=== PATIENT | female | born 1950 | race Caucasian/White ===

== ENCOUNTER 2018-07-29 10:32 | Outpatient (REF) | payer MEDICARE, SELFPAY ==
[2018-07-30 11:35] LABS: Campylobacter PCR SEE COMMENTS; Salmonella PCR SEE COMMENTS; Shiga Toxin PCR SEE COMMENTS; Shigella/Enteroinvasive Ecoli SEE COMMENTS
== END 2018-07-29 10:52 ==
LOC: LBN 10:32
PROVIDERS: PCP Internal Medicine; Visit Provider Internal Medicine Gastroenterology
DX: K51.50 Left sided colitis without complications (principal)
CPT/HCPCS: 87505; 83630; 87324

== ENCOUNTER 2018-11-02 01:28 | Outpatient (CLI) | payer MEDICARE, SELFPAY ==
--- NOTE | 2018-11-02 12:38 | DI.MAMMO_ITS ---
SYMPTOMS/DIAGNOSIS: SCREENING, Z12.31 MAMMOGRAMS: Mammograms were interpreted according to the usual protocol including computer analysis with CAD system, tomosynthesis and C view imaging. Comparison is with the prior examinations. No suspicious masses or microcalcifications are seen. The skin and axillae are unremarkable. IMPRESSION: No definite evidence for malignancy. Yearly mammography is recommended. Category 1. Breast density B. MQSA ASSESSMENT OF FINDINGS: Negative. Category 1. Patient will receive a letter notifying them of these results. BI-RADS category B. There are scattered areas of fibroglandular density.
--- NOTE | 2018-11-02 12:49 | DI.CTLCSR_ITS ---
SYMPTOMS/DIAGNOSIS: SCREENING FOR LUNG CA, NICOTINE DEPENDENCE, F17.210 CT SCAN OF THE CHEST: CT scan of the chest was performed according to the lung cancer screening protocol. There are no priors for comparison. There is atherosclerosis of the thoracic aorta but no aneurysmal dilatation. The heart size is within normal limits. No significant pericardial effusion is seen. No significant thoracic adenopathy is seen on this noncontrast examination. No pleural effusion or pneumothorax is identified. There is a 2 cm hypodense left adrenal nodule. The patient is status post cholecystectomy. Emphysematous changes are present in the lungs. No noncalcified pulmonary nodules are present. No focal consolidating infiltrates are seen. Dependent atelectatic changes are seen in the lung bases. The tracheobronchial tree is unremarkable. Degenerative changes are seen in the spine. IMPRESSION: 1. No pulmonary nodules. 2. Pulmonary emphysema. 3. A 2 cm left adrenal hypodense nodule. This may reflect an adrenal adenoma. Followup as clinically appropriate. Lung-RAD Category: 1- Negative Lung- RAD Management of Findings: Continue annual LDCT screening in 12 months
== END 2018-11-02 01:48 ==
PROVIDERS: PCP Internal Medicine; Visit Provider Internal Medicine
DX: Z12.2 Encounter for screening for malignant neoplasm of respiratory organs (principal); F17.210 Nicotine dependence, cigarettes, uncomplicated; J43.9 Emphysema, unspecified; E27.8 Other specified disorders of adrenal gland; Z12.31 Encounter for screening mammogram for malignant neoplasm of breast
CPT/HCPCS: 77063; 77067; G0297

== ENCOUNTER 2019-01-24 11:19 | Outpatient (REF) | payer MEDICARE, SELFPAY | END 2019-01-24 11:39 | LOC: LBN 11:19 | PROVIDERS: PCP Internal Medicine; Visit Provider Internal Medicine | DX: R10.2 Pelvic and perineal pain (principal) | CPT/HCPCS: 87086 ==

== ENCOUNTER 2019-02-01 00:48 | Outpatient (CLI) | payer MEDICARE, SELFPAY ==
--- NOTE | 2019-02-01 14:02 | DI.US_ITS ---
SYMPTOM/DIAGNOSIS: PELVIC PRESSURE, R10.2 PELVIC ULTRASOUND: Transabdominal and transvaginal examination was performed. The uterus measures 4.3 cm long by 2.2 cm AP by 2.8 cm transverse The endometrial stripe is within normal limits. There is a small amount of fluid within the endometrial canal. Cervical Nabothian cysts are present. The left ovary was not visualized transabdominally or transvaginally. No left adnexal mass is seen. The right ovary measures 1.7 x 1.6 x 1.1 cm and is grossly unremarkable. No free pelvic fluid or hydronephrosis is identified. IMPRESSION: Limited examination 2 Small amount of fluid within the endometrial canal.
== END 2019-02-01 01:08 ==
PROVIDERS: PCP Internal Medicine; Visit Provider Internal Medicine
DX: R10.2 Pelvic and perineal pain (principal); N88.8 Other specified noninflammatory disorders of cervix uteri; N85.8 Other specified noninflammatory disorders of uterus
CPT/HCPCS: 76830; 76856

== ENCOUNTER 2019-04-21 08:13 | Outpatient (CLI) | payer MEDICARE, SELFPAY ==
[2019-04-21 09:33] LABS: ALT 24 U/L (12-78); AST 25 U/L (15-37); Albumin 3.8 g/dL (3.4-5.0); Alkaline Phosphatase 82 U/L (46-116); Anion Gap 10.4 mmol/L (3-11); BUN 13 mg/dL (7-18); Bilirubin, Total 0.6 mg/dL (0.2-1.0); CO2 29.6 mmol/L (21.0-32.0); Chloride 102 mmol/L (98-107); Cholesterol 176 mg/dL (50-200); Estimated GFR 54.81 (mL/min/1.73m2); Glucose 89 mg/dL (70-100); HDL Cholesterol 69 mg/dL (40-60); LDL CHOLESTEROL 89 mg/dL (<100); Magnesium 1.8 mg/dL (1.8-2.4); Sodium 142 mmol/L (136-145); Triglyceride 62 mg/dL (30-150)
== END 2019-04-21 08:33 ==
PROVIDERS: PCP Internal Medicine; Visit Provider Internal Medicine
DX: E78.5 Hyperlipidemia, unspecified (principal); E83.42 Hypomagnesemia; F17.200 Nicotine dependence, unspecified, uncomplicated
CPT/HCPCS: 36415; 80053; 80061; 83721; 83735

== ENCOUNTER 2019-05-14 12:27 | Emergency (ER) | payer MEDICARE, SELFPAY ==
[2019-05-14 12:31] VITALS: BP 133/68; PULSE 61; RESP 12; TEMP 36.7; O2SAT 97
[2019-05-14 14:40] VITALS: BP 151/67; PULSE 55; RESP 15; O2SAT 100
[2019-05-14] MEDS: Doxycycline Hyclate 100 MG CAP (14:53)
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
== END 2019-05-14 15:02 | disposition home or self-care (01) ==
PROVIDERS: Emergency Provider Nurse Practitioner Family; PCP Internal Medicine
DX: S80.862A Insect bite (nonvenomous), left lower leg, initial encounter (principal); W57.XXXA Bitten or stung by nonvenomous insect and other nonvenomous arthropods, initial encounter
CPT/HCPCS: 99283

== ENCOUNTER 2019-08-11 07:40 | Outpatient (CLI) | payer MEDICARE, SELFPAY ==
--- NOTE | 2019-08-11 08:30 | DI.RAD_ITS ---
EXAM: XR ABDOMEN FLAT UPRIGHT INDICATION: R10.31, RT LOWER QUAD PAIN, R10.32, LT LOWER QUAD PAIN. COMPARISON: No exams were available for comparison TECHNIQUE: 2D digital imaging was performed. FINDINGS: THERE IS NO EVIDENCE OF BOWEL OBSTRUCTION. THERE IS NO EVIDENCE OF FREE AIR. THE PATIENT IS STATUS P OST CHOLECYSTECTOMY. THERE IS NO EVIDENCE OF ORGANOMEGALY OR A LOCALIZED INTRA-ABDOMINAL OR PELVIC M ASS. IMPRESSION: NO ACUTE ABNORMALITY IS IDENTIFIED.
== END 2019-08-11 08:00 ==
PROVIDERS: PCP Internal Medicine; Visit Provider Internal Medicine Gastroenterology
DX: R10.32 Left lower quadrant pain (principal); Z90.49 Acquired absence of other specified parts of digestive tract; R10.31 Right lower quadrant pain
CPT/HCPCS: 74019

== ENCOUNTER 2019-11-30 02:19 | Outpatient (CLI) | payer MEDICARE, SELFPAY ==
--- NOTE | 2019-11-30 12:58 | DI.CTLCSR_ITS ---
EXAM: CT CHEST LUNG CANCER SCREEN CLINICAL HISTORY: SCREENING FOR LUNG CANCER, NICOTINE DEPENDENCE, F17.210 TECHNIQUE: Noncontrast CT examination of the chest was performed utilizing lung cancer screening pro [employer]. COMPARISON: CT CHEST LUNG CANCER SCREEN from 11/02/2018 FINDINGS: Images obtained through the upper abdomen show unremarkable appearance of visualized portions of live r and spleen. No mediastinal or hilar adenopathy. Tracheobronchial tree appears intact. Lungs are predominantly clear but there are very tiny pulmonary nodules seen peripherally bilaterally, which ar e noncalcified and which in retrospect were present on prior CT 11/02/2018 and are unchanged from omar t time. Largest nodules measure in the 2-3 millimeter in diameter range. No additional intrapulmona ry findings apart from moderate central lobular emphysema. No pleural effusion. IMPRESSION: Stable less than 3 millimeter bilateral intrapulmonary nodules, predominately peripheral. Centrilobu lar emphysema noted. Category 2, benign appearance or behavior. Continue annual screening with LDCT in 12 months. Lung RADS Cat 2 - Benign Appearance / Behavior: Nodules with a very low likelihood of becoming a clin ically active caner due to size or lack of growth
--- NOTE | 2019-11-30 13:18 | DI.MRI_ITS ---
EXAM: MR LUMBAR SPINE WO CLINICAL HISTORY: LEFT LEG PAIN, CHRONIC LUMBAR RADICULOPATHY, M54.16. TECHNIQUE: Multiplanar multisequence MRI was performed. MR examination of the lumbosacral spine was performed according to the usual protocol. COMPARISON: No exams were available for comparison FINDINGS: No significant bony signal abnormality is seen. There is a moderate left convex lumbar scoliosis. T here are disc bulges throughout the lumbar region. No focal disc herniation identified. No bony robbie tral canal spinal stenosis or neural foraminal stenosis. The conus medullaris appears intact. Moder ate facet hypertrophic changes are noted with the most prominent facet hypertrophic changes at L4-5 a nd L5-S1. IMPRESSION: Facet degenerative changes and multilevel disc bulge with no disc herniation or significant spinal st enosis.
== END 2019-11-30 02:39 ==
PROVIDERS: PCP Internal Medicine; Visit Provider Internal Medicine
DX: M79.605 Pain in left leg (principal); M54.16 Radiculopathy, lumbar region; M51.16 Intervertebral disc disorders with radiculopathy, lumbar region; M47.27 Other spondylosis with radiculopathy, lumbosacral region; Z12.2 Encounter for screening for malignant neoplasm of respiratory organs; R91.8 Other nonspecific abnormal finding of lung field; J43.9 Emphysema, unspecified
CPT/HCPCS: G0297; 72148

== ENCOUNTER 2020-09-11 03:13 | Outpatient (CLI) | payer MEDICARE, SELFPAY ==
[2020-09-11 10:35] LABS: Calculated LDL 82 mg/dL (<100); Cholesterol 156 mg/dL (<200); HDL Cholesterol 62 mg/dL (40-60); Triglyceride 63 mg/dL (<150)
== END 2020-09-11 03:33 ==
PROVIDERS: PCP Internal Medicine; Visit Provider Internal Medicine
DX: E78.00 Pure hypercholesterolemia, unspecified (principal)
CPT/HCPCS: 36415; 80061

== ENCOUNTER 2020-09-16 00:28 | Outpatient (CLI) | payer MEDICARE, SELFPAY ==
--- NOTE | 2020-09-16 09:15 | DI.NM_ITS ---
APPROVED REPORT Exam: Exercise Treadmill Patient Location: Out-Patient Room/Bed: Stress Nurse: Jessica Armenta RN BMI: 27.09 Baseline Rhythm: Sinus Rhythm Comment: PAC's Medical History Medical History: HLD. Scoliosis. Fibromyalgia. Ulceritive Colitis. Smoker. Cardiac Medications: Nexium. Atorvastatin. , Allergies: Sulfa antibiotics. Cardiac Risk Factors: Hyperlipidemia, FHX of CAD, Smoking (current) Previous Cardiac Procedures: None. Pretest Chest Pain Characteristics: No chest pain Exercise History: Physically active Lung Sounds: Clear to auscultation Heart Sounds: Regular Stress Test Details Test: Exercise stress testing was performed using a Rodo protocol. Nuclear Acquisition: Rest Tc-99m/Stress Tc-99m 1 day Rest Isotope: Tc-99m Sestamibi. Dose: 11.0 Date: 09/16/2020 Injection Time: 0930 Stress Isotope: Tc-99m Sestamibi. Dose: 35 Date: 09/16/2020 Injection Time: 1200 HR Resting HR Supine: 60 bpm Max Heart Rate (APMHR): 148.322126 bpm Resting HR Standin bpm Target HR (85% APMHR): 125.720633 bpm Max HR Achieved: 152 bpm % of APMHR: 102.70 Recovery HR: 75 bpm HR response to stress: Normal HR response to stress BP Resting BP Supine: 178/90 mmHg Resting BP Standin/84 mmHg Max BP: 190/68 mmHg Recovery BP: 164/82 mmHg BP response to stress: Blunted blood pressure response to stress. Comment: Patient hypertensive at baseline. ECG Resting ECG: Sinus Rhythm Ectopy: PAC's Stress ECG: Sinus Tachycardia ST Change: no significant ST segment changes Arrhythmia: PAC's. Recovery ECG: Sinus Rhythm Recovery ST Change: no significant ST segment changes Recovery Arrhythmia: PVC's, frequent PAC's. Clinical Reason for Termination: Fatigue Stress Symptoms: None. Exercise duration: 6 min21 sec Highest Stage Reached: Stage 3: 3.4 mph at 14% grade. Exercise capacity: 7.57 METs Stress ECG Conclusion 1. Resting EKG was within normal limits 2. Patient exercised on the Rodo protocol and completed a workload of 7.57 METS. There were no symp toms to suggest angina 3. Normal heart rate and blood pressure response to exercise. Patient achieved greater than 100% of predicted heart rate for age 4. Electrocardiographically there was no evidence of myocardial ischemia 5. Atrial premature beats were noted 6. Simons treadmill score is 6 which is low risk Stress Test Summary STAGE Time (mins) Speed (mph) Grade (%) HR BP SYMPTOMS METS Supine 60 178/90 Standing 65 166/84 1 3 1.7 10 110 194/78 4.6 2 6 2.5 12 146 200/72 7 1 min recovery 135 190/68 3 min recovery 84 182/72 6 min recovery 75 164/82 MPI Conclusion There is normal myocardial perfusion without evidence of ischemia or prior infarction. Estimated eje ction fraction is 71% Radiologist Interpretation Radiologist agrees with Athletics Teacher's Interpretation. Radiologist Interpretation by: Ephraim Delgado MD Interpretation Date/Time: 09/17/2020 09:08:36
== END 2020-09-16 00:48 ==
PROVIDERS: PCP Internal Medicine; Visit Provider Internal Medicine
DX: R07.89 Other chest pain (principal); E78.5 Hyperlipidemia, unspecified; F17.210 Nicotine dependence, cigarettes, uncomplicated; Z82.49 Family history of ischemic heart disease and other diseases of the circulatory system
CPT/HCPCS: 78452; 93016; 93018; 93017

== ENCOUNTER 2021-01-28 03:31 | Outpatient (CLI) | payer MEDICARE, SELFPAY ==
[2021-01-28 13:47] LABS: HCT 41.6 % (36.0-46.0); HGB 13.5 g/dL (11.2-15.7); MCHC 32.5 % (32.0-36.0); MCV 89.3 fL (80-95); MPV 9.8 fL (8.0-11.0); Platelet Count 175 10^3/uL (130-400); RBC 4.66 10^6/uL (3.93-5.22); RDW 13.5 % (11.7-14.6); RDW-SD 44.7 fL; WBC 5.23 10^3/uL (4.4-10.8)
[2021-01-28 15:20] LABS: ALT 27 U/L (14-59); AST 25 U/L (15-37); Albumin 3.9 g/dL (3.4-5.0); Alkaline Phosphatase 90 U/L (46-116); Anion Gap 8.8 mmol/L (3-11); BUN 12 mg/dL (7-18); Bilirubin, Total 0.5 mg/dL (0.2-1.0); CO2 29.2 mmol/L (21.0-32.0); CREATININE 1.1 mg/dL (0.55-1.02); Calcium 9.1 mg/dL (8.5-10.1); Chloride 102 mmol/L (98-107); Estimated GFR 48.82 (mL/min/1.73m2); Glucose 151 mg/dL (74-106); Potassium 3.9 mmol/L (3.5-5.1); Sodium 140 mmol/L (136-145); TSH 1.36 uIU/mL (0.36-3.74); Vitamin B12 248 pg/mL (193-986)
[2021-01-29 09:23] LABS: ESR 6 mm/hr (<or=30)
[2021-01-29 14:41] LABS: ANA Interpretation Positive (Negative); ANA Titer Pattern 1:80 Homogeneous
[2021-01-30 04:58] LABS: Vitamin D 25 Total 27.9 ng/ml (30-100)
== END 2021-01-28 03:32 | disposition home or self-care (01) ==
LOC: LBO 03:31
PROVIDERS: PCP Internal Medicine; Visit Provider Internal Medicine
DX: R41.3 Other amnesia (principal); E55.9 Vitamin D deficiency, unspecified
CPT/HCPCS: 80053; 82306; 85027; 85652; 82607; 84443; 86038

== ENCOUNTER 2021-03-05 02:10 | Outpatient (CLI) | payer MEDICARE, SELFPAY ==
--- NOTE | 2021-03-05 07:15 | DI.MAMMO_ITS ---
EXAM: MG MAMMO SCREENING CLINICAL HISTORY: screening,z12.39. TECHNIQUE: Bilateral full field digital CC and MLO mammographic images were obtained with 3D tomosyn thesis and utilizing computer aided detection (CAD). COMPARISON: Prior mammograms dating back to 1011, the most recent being October 2018. FINDINGS: No new significant radiograph findings in left breast peer However in the right breast there is a new group of microcalcifications posteriorly located approxima tely 9 cm in from the nipple. Spot Mag views recommended There is no significant architectural distortion nor skin thickening-retraction. IMPRESSION: No radiographic evidence of malignancy in left breast. New microcalcification group posteriorly in the right breast. This requires spot Mag 2D views both C C and straight lateral. BI-RADS Category 0 - Assessment Incomplete: Need additional imaging evaluation Breast Density - Category B - Scattered areas of fibroglandular density Breast density Category C or D implies that the patient has dense breast tissue. Dense breast tissue can make it harder to find cancer on a mammogram. Dense breast tissue is also associated with an incr eased risk of breast cancer. This information about the result of the mammogram report was provided to the patient to raise their awareness. Use this report when you speak with the patient about their risks for breast cancer, which includes their family history. At that time, you may recommend additional screening tests (Ultrasoun d or MRI) as these tests may add significant information. A negative radiographic report should not delay biopsy if a dominant or clinically suspicious mass is present. Up to ten percent of cancers are not identified on mammography. A negative report may reinforce clinical impression. Adenosis and dense breasts may obscure an underlying neoplasm. False positive reports average 6 to 10%. Patient will receive a letter notifying them of these results.
--- NOTE | 2021-03-05 11:00 | DI.CTLCSR_ITS ---
EXAM: CT CHEST LUNG CANCER SCREEN CLINICAL HISTORY: Screening for lung cancer,current smoker, f17.210. TECHNIQUE: Imaging Protocol: Low Dose Technique CONTRAST MATERIAL: None COMPARISON: CT CT CHEST LUNG CANCER SCREEN from 11/02/[address] CHEST LUNG CANCER SCREEN from 11/30/2019 FINDINGS: CHEST: LUNGS: The previously described benign-appearing small nodular densities in the lung anne are uncha nged.. There are no new pulmonary nodules. No new infiltrates. No pleural effusions. No significa nt focal findings in the trachea and mainstem bronchi.. MEDIASTINUM: There is no obvious hilar nor mediastinal adenopathy. CARDIAC: Heart size is normal. There is no pericardial effusion.Caliber of the thoracic aorta is wit hin normal limits. OTHER: There is nodule in the lateral limb of the left adrenal gland which measures 2.5 by 2.0 cm.. This cannot be compared to the prior study is a prior study did not reach down to this level. Howeve r, this nodules unchanged from the prior CT scan October 2018 and therefore most probably benign. OSSEOUS: No significant osseous lesions.. IMPRESSION: 1. Stable bilateral benign-appearing pulmonary findings. No new ominous focal pulmonary findings nor pleural effusions nor obvious intrathoracic adenopathy. 2. Left adrenal nodule measuring 25 x 20 millimeters which is unchanged from CT scan of October 2018 and therefore most probably a benign adenoma. The opposite-right adrenal gland appears unremarkable . 3. Lung rads 2 benign findings; recommended continued yearly LDCT. Lung-RADS 1.0 CATEGORIES: Category 0 - Prior chest CT exam(s) being located for comparison. Category 1 - Annual screening in 12 months. No nodules or definitely benign nodules. Category 2 - Annual screening in 12 months. Benign appearance. Nodules with low likelihood of becomin g active cancer. Category 3 - 6-month follow-up. Probably benign. Short-term follow-up suggested. Nodules with low lik elihood of becoming active cancer. Category 4A - 3-month follow-up and CT/PET if >8 mm in size. Suspicious finding. Findings which requi re additional testing. Category 4B - Findings which require additional testing and tissue sampling. Modifier S- Potentially clinically significant findings (non lung cancer) RADIATION DOSE DELIVERED: 72.17mGy.cm Total DLP 1.84mGy CTDIvol DATA REPOSITORY: All CT scans at this facility are submitted to the National Radiology Data Registry (NRDR) Dose Index Registry (DIR) with the [employer] (A[employer]). RADIATION OPTIMIZATION: All CT scans at this facility use at least one of these dose optimization te chniques: automated exposure control; mA and/or kV adjustment per patient size (includes targeted exa ms where dose is matched to clinical indication); or iterative reconstruction.
== END 2021-03-05 02:30 ==
PROVIDERS: PCP Internal Medicine; Visit Provider Internal Medicine
DX: Z12.31 Encounter for screening mammogram for malignant neoplasm of breast (principal); R92.8 Other abnormal and inconclusive findings on diagnostic imaging of breast; Z12.2 Encounter for screening for malignant neoplasm of respiratory organs; F17.210 Nicotine dependence, cigarettes, uncomplicated; R91.8 Other nonspecific abnormal finding of lung field; D35.02 Benign neoplasm of left adrenal gland
CPT/HCPCS: 71271; 77063; 77067

== ENCOUNTER 2021-03-07 03:38 | Outpatient (CLI) | payer MEDICARE, SELFPAY ==
--- NOTE | 2021-03-07 | DI.MAMMO_ITS ---
EXAM: MG MAMMO SCREEN CALL BACK UNI CLINICAL HISTORY: F/U MAMMO, NEW GROUP OF MICROCALCIFICATIONS. TECHNIQUE: Craniocaudal and mediolateral oblique Full Field Digital Mammography views of the right b reast with Computer Aided Diagnosis. COMPARISON: Priors available for comparison FINDINGS: Mammography/Tomosynthesis: Masses/Architectural Distortion: None seen. Microcalcifictions: No suspicious pleomorphic-type are seen. There is a tiny cluster of a few punctat e calcifications in the upper-outer quadrant of the right breast. They appear to have been present o n a prior examination from 2018 on the MLO view. No definite suspicious characteristics are seen. Skin Thickening/Nipple Retraction: None. IMPRESSION: 1. No evidence of malignancy is noted. 2. A six-month follow-up right mammogram is requested for re-evaluation. 3. The findings were discussed with the patient on the date of the examination. BI-RADS Category 3 - 6 month - Probably Benign Finding: Recommend follow-up imaging in 6 months Breast Density - Category B - Scattered areas of fibroglandular density Breast density Category C or D implies that the patient has dense breast tissue. Dense breast tissue can make it harder to find cancer on a mammogram. Dense breast tissue is also associated with an incr eased risk of breast cancer. This information about the result of the mammogram report was provided to the patient to raise their awareness. Use this report when you speak with the patient about their risks for breast cancer, which includes their family history. At that time, you may recommend additional screening tests (Ultrasoun d or MRI) as these tests may add significant information. A negative radiographic report should not delay biopsy if a dominant or clinically suspicious mass is present. Up to ten percent of cancers are not identified on mammography. A negative report may reinforce clinical impression. Adenosis and dense breasts may obscure an underlying neoplasm. False positive reports average 6 to 10%. Patient will receive a letter notifying them of these results.
== END 2021-03-07 03:58 ==
PROVIDERS: PCP Internal Medicine; Visit Provider Internal Medicine
DX: Z12.31 Encounter for screening mammogram for malignant neoplasm of breast (principal); R92.8 Other abnormal and inconclusive findings on diagnostic imaging of breast; N63.11 Unspecified lump in the right breast, upper outer quadrant
CPT/HCPCS: 77063; 77067

== ENCOUNTER 2021-08-11 03:48 | Outpatient (RCR) | payer MEDICARE, SELFPAY ==
--- NOTE | 2021-08-11 10:00 | HOLTER_ITS ---
APPROVED REPORT Conclusion This is a 48-hour Holter monitor Predominant rhythm was sinus with an average heart rate of 70. Minimum was 53, maximum 131 There were very rare isolated PVCs There were moderately frequent atrial premature beats. There were rare atrial pairs. There were rar e self-limited atrial runs the longest of these was 9 beats in duration There was no atrial fibrillation. There was no high-grade AV block. There were no pauses greater th an 3 seconds
== END 2021-08-21 23:59 | disposition home or self-care (01) ==
LOC: RT 03:48
PROVIDERS: PCP Internal Medicine; Visit Provider Internal Medicine
DX: I45.9 Conduction disorder, unspecified (principal); I49.1 Atrial premature depolarization
CPT/HCPCS: 93227; 93225; 93226

== ENCOUNTER → 2021-08-13 12:45 | Outpatient (BNVA) | payer MEDICARE, SELFPAY | PROVIDERS: PCP Internal Medicine; Referring Provider Internal Medicine; Visit Provider Psychiatry & Neurology Neurology | DX: M79.604 Pain in right leg (principal); M79.605 Pain in left leg; G89.29 Other chronic pain; M41.26 Other idiopathic scoliosis, lumbar region | CPT/HCPCS: 99214 ==

== ENCOUNTER → 2021-08-26 11:19 | Outpatient (BNVA) | payer MEDICARE, SELFPAY | PROVIDERS: PCP Internal Medicine; Referring Provider Internal Medicine; Visit Provider Internal Medicine Cardiovascular Disease | DX: R07.89 Other chest pain (principal); N18.9 Chronic kidney disease, unspecified | CPT/HCPCS: 99203; 99213 ==

== ENCOUNTER 2021-08-27 02:46 | Outpatient (CLI) | payer MEDICARE, SELFPAY ==
[2021-08-27 12:01] LABS: Anion Gap 3.5 mmol/L (3-11); BUN 12 mg/dL (7-18); CO2 32.5 mmol/L (21.0-32.0); CREATININE 1.1 mg/dL (0.55-1.02); Calcium 8.8 mg/dL (8.5-10.1); Chloride 105 mmol/L (98-107); Estimated GFR 48.82 (mL/min/1.73m2); Glucose 90 mg/dL (74-106); Potassium 5.2 mmol/L (3.5-5.1); Sodium 141 mmol/L (136-145)
== END 2021-08-27 02:47 | disposition home or self-care (01) ==
LOC: LBO 02:46
PROVIDERS: PCP Internal Medicine; Visit Provider Internal Medicine Cardiovascular Disease
DX: R07.89 Other chest pain (principal); N18.9 Chronic kidney disease, unspecified
CPT/HCPCS: 36415; 80048

== ENCOUNTER 2021-09-09 01:26 | Outpatient (CLI) | payer MEDICARE, SELFPAY ==
--- NOTE | 2021-09-09 09:46 | DI.MAMMO_ITS ---
Exam(s) MAMMO DIAGNOSTIC UNI EXAM: MAMMO DIAGNOSTIC UNI CLINICAL HISTORY: 6 month follow up,F/U MICROCALCIFICATIONS,R92.0. TECHNIQUE: Craniocaudal and mediolateral oblique Full Field Digital Mammography views of the right b reast with Computer Aided Diagnosis followed by Tomosynthesis. COMPARISON: Comparison is made with prior examinations. FINDINGS: Mammography/Tomosynthesis: Masses/Architectural Distortion: None seen. Microcalcifictions: No suspicious pleomorphic-type are seen. Stable punctate calcifications in the ri ght breast. Skin Thickening/Nipple Retraction: None. IMPRESSION: 1. No evidence of malignancy is noted. 2. Unless there is more urgent need, follow-up screening mammography is recommended, as per [employer] guidelines. 3. The findings were discussed with the patient on the date of the examination. BI-RADS Category 1 - Negative Breast Density - Category B - Scattered areas of fibroglandular density Breast density Category C or D implies that the patient has dense breast tissue. Dense breast tissue can make it harder to find cancer on a mammogram. Dense breast tissue is also associated with an incr eased risk of breast cancer. This information about the result of the mammogram report was provided to the patient to raise their awareness. Use this report when you speak with the patient about their risks for breast cancer, which includes their family history. At that time, you may recommend additional screening tests (Ultrasoun d or MRI) as these tests may add significant information. A negative radiographic report should not delay biopsy if a dominant or clinically suspicious mass is present. Up to ten percent of cancers are not identified on mammography. A negative report may reinforce clinical impression. Adenosis and dense breasts may obscure an underlying neoplasm. False positive reports average 6 to 10%. Patient will receive a letter notifying them of these results.
== END 2021-09-09 01:46 ==
PROVIDERS: PCP Internal Medicine; Visit Provider Internal Medicine
DX: Z12.31 Encounter for screening mammogram for malignant neoplasm of breast (principal); R92.8 Other abnormal and inconclusive findings on diagnostic imaging of breast; R92.0 Mammographic microcalcification found on diagnostic imaging of breast
CPT/HCPCS: 77061; 77065; G0279

== ENCOUNTER 2022-03-06 00:13 | Outpatient (CLI) | payer MEDICARE, SELFPAY ==
--- NOTE | 2022-03-06 06:30 | DI.CTLCSR_ITS ---
Exam(s) CT CHEST LUNG CANCER SCREEN EXAM: CT CHEST LUNG CANCER SCREEN CLINICAL HISTORY: Screening for lung cancer,CURRENT SMOKER, F17.210 TECHNIQUE: Imaging Protocol: Axial computed tomography images with coronal and sagittal reformatted images were created and reviewed COMPARISON: CT CT CHEST LUNG CANCER SCREEN from 03/05/2021 FINDINGS: Tracheobronchial tree: Patent where visualized. Pulmonary parenchyma: No consolidation or dominant measurable mass. Emphysematous changes are present in the lungs. Lung Nodules: There again seen a few peripheral noncalcified pulmonary nodules present the largest me asures 2.6 mm. Mediastinum and Maria Antonia: No dominant adenopathy or fluid collection. The esophagus is unremarkable.There is a small hiatal hernia. Thyroid gland: Unremarkable. Lymph nodes: Unremarkable. Pleura: No effusion or pneumothorax. Heart: The heart is not dilated. Coronary artery calcifications are present. No pericardial effusion . Aorta: Thoracic aorta non-dilated.Atherosclerosis is present. Upper abdomen: The patient is status post cholecystectomy. There is a stable left adrenal nodule li jesica reflecting an adenoma. Soft Tissues: Unremarkable. Bones: Within normal limits. IMPRESSION: No suspicious pulmonary nodules are present. Lung RADS Cat 2 - Benign Appearance / Behavior: Nodules with a very low likelihood of becoming a clin ically active cancer due to size or lack of growth Lung-RADS 1.0 CATEGORIES: Category 0 - Prior chest CT exam(s) being located for comparison. Category 1 - Annual screening in 12 months. No nodules or definitely benign nodules. Category 2 - Annual screening in 12 months. Benign appearance. Nodules with low likelihood of becomin g active cancer. Category 3 - 6-month follow-up. Probably benign. Short-term follow-up suggested. Nodules with low lik elihood of becoming active cancer. Category 4A - 3-month follow-up and CT/PET if >8 mm in size. Suspicious finding. Findings which requi re additional testing. Category 4B - Findings which require additional testing and tissue sampling. Suspicious finding. Category 4X - Category 3 or 4 nodules with additional features or imaging findings that increases the suspicion of malignancy. Modifier S- Potentially clinically significant finding. (Non lung cancer) RADIATION DOSE DELIVERED: 67.25mGy.cm Total DLP !Error CTDIvol 67.25mGy.cm Total DLP CTDIvol DATA REPOSITORY: All CT scans at this facility are submitted to the National Radiology Data Registry (NRDR) Dose Index Registry (DIR) with the [employer] (A[employer]). RADIATION OPTIMIZATION: All CT scans at this facility use at least one of these dose optimization te chniques: automated exposure control; mA and/or kV adjustment per patient size (includes targeted exa ms where dose is matched to clinical indication); or iterative reconstruction.
== END 2022-03-06 00:33 ==
PROVIDERS: PCP Internal Medicine; Visit Provider Internal Medicine
DX: Z12.2 Encounter for screening for malignant neoplasm of respiratory organs (principal); F17.210 Nicotine dependence, cigarettes, uncomplicated; R91.8 Other nonspecific abnormal finding of lung field; K44.9 Diaphragmatic hernia without obstruction or gangrene; J43.8 Other emphysema
CPT/HCPCS: 71271

== ENCOUNTER → 2022-04-22 03:10 | Outpatient (CLI) | payer MEDICARE, SELFPAY ==
--- NOTE | 2022-04-22 09:11 | DI.RAD_ITS ---
Exam(s) XR HIP RT COMPLETE AP PELVIS EXAM: XR HIP RT COMPLETE AP PELVIS CLINICAL HISTORY: rt hip pain, m25.551 TECHNIQUE: COMPARISON: CR RT HIP COMPLETE AP PELVIS from 03/09/2016 FINDINGS: Two views were obtained. There are severe degenerative changes of the lower lumbar spine. There are slight degenerative changes of the SI joints bilaterally. Cartilaginous joint spaces of the hips ap pear fairly well maintained. No significant bony abnormality seen involving the hips. IMPRESSION: RADIATION DOSE DELIVERED: Total DLP
== END ==
PROVIDERS: PCP Internal Medicine; Visit Provider Internal Medicine
DX: M25.551 Pain in right hip (principal); M53.3 Sacrococcygeal disorders, not elsewhere classified
CPT/HCPCS: 36415; 80053; 80061; 82306; 85027; 73502; 83735

== ENCOUNTER 2022-04-22 04:02 | Outpatient (CLI) | payer MEDICARE, SELFPAY ==
[2022-04-22 09:03] LABS: HCT 43.9 % (36.0-46.0); HGB 14.3 g/dL (11.2-15.7); MCH 28.4 pg (27.0-33.0); MCHC 32.6 % (32.0-36.0); MCV 87 fL (80-95); MPV 9.7 fL (8.0-11.0); Platelet Count 215 10^3/uL (130-400); RBC 5.03 10^6/uL (3.93-5.22); RDW 13.9 % (11.7-14.6); RDW-SD 44.7 fL; WBC 4.45 10^3/uL (4.4-10.8)
[2022-04-22 09:59] LABS: ALT 23 U/L (14-59); AST 17 U/L (15-37); Albumin 4.2 g/dL (3.4-5.0); Alkaline Phosphatase 105 U/L (46-116); Anion Gap 6.9 mmol/L (3-11); BUN 13 mg/dL (7-18); Bilirubin, Total 0.8 mg/dL (0.2-1.0); CO2 30.1 mmol/L (21.0-32.0); CREATININE 1.1 mg/dL (0.55-1.02); Calcium 9.2 mg/dL (8.5-10.1); Calculated LDL 98 mg/dL (<100); Chloride 102 mmol/L (98-107); Cholesterol 180 mg/dL (<200); Estimated GFR 48.69 (mL/min/1.73m2); Glucose 94 mg/dL (74-106); HDL Cholesterol 64 mg/dL (40-60); Magnesium 1.7 mg/dL (1.8-2.4); Potassium 4.2 mmol/L (3.5-5.1); Sodium 139 mmol/L (136-145); Total Protein 7.4 g/dL (6.4-8.2); Triglyceride 91 mg/dL (<150)
[2022-04-23 06:51] LABS: Vitamin D 25 Total 45.2 ng/mL (30-100)
== END 2022-04-22 04:03 | disposition home or self-care (01) ==
LOC: LBO 04:03
PROVIDERS: PCP Internal Medicine; Referring Provider Internal Medicine; Visit Provider Internal Medicine
DX: E55.9 Vitamin D deficiency, unspecified (principal); E78.5 Hyperlipidemia, unspecified; K51.90 Ulcerative colitis, unspecified, without complications; N18.9 Chronic kidney disease, unspecified; E78.00 Pure hypercholesterolemia, unspecified; F17.200 Nicotine dependence, unspecified, uncomplicated
CPT/HCPCS: 36415; 80053; 80061; 82306; 85027; 83735

== ENCOUNTER → 2022-06-12 09:13 | Outpatient (BNVA) | payer MEDICARE, SELFPAY | PROVIDERS: PCP Internal Medicine; Referring Provider Internal Medicine; Visit Provider Student in an Organized Health Care Education/Training Program | DX: M70.61 Trochanteric bursitis, right hip (principal); M76.891 Other specified enthesopathies of right lower limb, excluding foot | CPT/HCPCS: 20610; 99213; J1040 ==

== ENCOUNTER → 2022-08-27 09:48 | Outpatient (BNVA) | payer MEDICARE, SELFPAY | PROVIDERS: PCP Internal Medicine; Referring Provider Internal Medicine; Visit Provider Internal Medicine Cardiovascular Disease | DX: Z79.01 Long term (current) use of anticoagulants (principal); R07.89 Other chest pain; E78.5 Hyperlipidemia, unspecified | CPT/HCPCS: 99212 ==

== ENCOUNTER → 2022-09-28 09:19 | Outpatient (BNVA) | payer MEDICARE, SELFPAY | PROVIDERS: PCP Student in an Organized Health Care Education/Training Program; Referring Provider Internal Medicine; Visit Provider Student in an Organized Health Care Education/Training Program | DX: M76.891 Other specified enthesopathies of right lower limb, excluding foot (principal); M70.61 Trochanteric bursitis, right hip; M76.31 Iliotibial band syndrome, right leg | CPT/HCPCS: 99213 ==

== ENCOUNTER → 2022-10-19 01:48 | Outpatient (CLI) | payer MEDICARE, SELFPAY ==
--- NOTE | 2022-10-19 07:30 | DI.MRI_ITS ---
Exam(s) MR LOWER JOINT RT WO EXAM: MR LOWER JOINT RT WO CLINICAL HISTORY: pain, ?gluteal tendon tear,TENDINITIS RT HIP ABDUCTOR,TROCHANTERIC BURSITIS TECHNIQUE: Multiplanar multisequence MRI of Pelvis was performed COMPARISON: CR XR HIP RT COMPLETE AP PELVIS from 04/22/2022 FINDINGS: Bones: There is no fracture or contusion pattern. Joints: No significant joint effusion is present. The SI joints and symphysis pubis are well maintained. Musculotendinous structures: High signal distally and partial tear involving the gluteus medius tendo n. There is also some high signal in the distal gluteus medius muscle. There is minimal fluid in th e trochanteric bursa. Fluid is seen around the gluteus minimus tendon distally but no focal tear is visible. Intrapelvic structures demonstrate no significant abnormality. IMPRESSION: Partial tear of the gluteus medius tendon. DATA REPOSITORY:
== END ==
PROVIDERS: PCP Student in an Organized Health Care Education/Training Program; Visit Provider Student in an Organized Health Care Education/Training Program
DX: M70.61 Trochanteric bursitis, right hip (principal); M76.31 Iliotibial band syndrome, right leg; M76.891 Other specified enthesopathies of right lower limb, excluding foot; M25.551 Pain in right hip; S76.011A Strain of muscle, fascia and tendon of right hip, initial encounter
CPT/HCPCS: 73721

== ENCOUNTER → 2022-11-24 13:20 | Outpatient (BNVA) | payer MEDICARE, SELFPAY | PROVIDERS: PCP Student in an Organized Health Care Education/Training Program; Referring Provider Student in an Organized Health Care Education/Training Program; Visit Provider Student in an Organized Health Care Education/Training Program | DX: S76.011A Strain of muscle, fascia and tendon of right hip, initial encounter (principal); X58.XXXA Exposure to other specified factors, initial encounter; M70.61 Trochanteric bursitis, right hip; M76.31 Iliotibial band syndrome, right leg | CPT/HCPCS: 99214 ==

== ENCOUNTER 2022-11-27 00:11 | Outpatient (CLI) | payer MEDICARE, SELFPAY ==
--- NOTE | 2022-11-27 08:15 | DI.DEXA_ITS ---
Exam(s) XR DEXA BONE DENSITY W/WO ERIC EXAM: XR DEXA BONE DENSITY W/WO ERIC CLINICAL HISTORY: evaluate bone density,OSTEOPENIA,SMOKER,JAIL USE MEDS,SCREENING FOR TECHNIQUE: Holoa[employer] america Horizon C densitometer analysis of left hip, lumbar spine and left forearm. COMPARISON: 2010 and 2014 FINDINGS: Lateral view of the thoracic and lumbar spine shows no evidence of compression fractures. Bone mineral density measurements of the lumbar spine correspond to a total T-score of 0.6, in the n ormal range. This represents an 11.6 percent increase from 2014 and a 10.8 percent increase compared with 2010. this could be secondary to worsening of degenerative changes. Bone mineral density measurements of the left hip correspond to a total T-score of -2.5., in the ost eoporotic range. This represents a 6.6 percent decrease when compared with 2014 and a 17.9 percent d ecrease when compared with 2010. The femoral neck T-score is -1.7 . The right forearm bone mineral density measurements correspond to a T-score of the distal 3rd of -2. 1, in the osteopenic range. This represents a 5.9 percent decrease compared to 11/10.. IMPRESSION: Osteopenia of the right forearm. Borderline osteoporosis of the left hip. Normal bone mineral densi ty of the lumbar spine.
== END 2022-11-27 00:31 ==
LOC: DI 00:11
PROVIDERS: PCP Student in an Organized Health Care Education/Training Program; Visit Provider Student in an Organized Health Care Education/Training Program
DX: E55.9 Vitamin D deficiency, unspecified (principal); Z79.899 Other long term (current) drug therapy; F17.210 Nicotine dependence, cigarettes, uncomplicated; M81.0 Age-related osteoporosis without current pathological fracture; M85.88 Other specified disorders of bone density and structure, other site
CPT/HCPCS: 77080

== ENCOUNTER 2022-12-11 08:42 | Day surgery (SDC) | payer MEDICARE, SELFPAY ==
[2022-12-11] VITALS (7 sets, daily range): BP systolic 87–145; BP diastolic 34–70; PULSE 60–70; RESP 13–18; TEMP 36.4–36.5; O2SAT 93–99; BMI 29.5
[2022-12-11] MEDS: Lactated Ringers 1,000 ML 30 ML IV (09:50)
--- NOTE | 2022-12-11 10:09 | ANES.PREOP_ITS ---
General Info Date of Service Date Performed: 12/11/22 Height: 5 ft 1 in Weight: 71 kg Body Mass Index (BMI): 29.5 Surgical Procedure: Operation Date: 12/11/22 11:35 Proposed Procedure Side Surgeon p Endoscopic Iliotibial Band Release w/Trochanteric Bursectomy and Gluteal Tendon Repair Right Masood Anderson MD Actual Procedure Side Surgeon p Endoscopic Iliotibial Band Release w/Trochanteric Bursectomy and Gluteal Tendon Repair Right Masood Anderson MD Meds Allergies and Home Medications Allergies Allergy/AdvReac Type Severity Reaction Status Date / Time Sulfa (Sulfonamide Allergy Unknown unknown Verified 12/10/22 13:32 Antibiotics) bupropion AdvReac Intermediate Agitation Uncoded 12/10/22 13:32 Home Medication Medication Instructions Recorded omeprazole 40 mg capsule,delayed 40 mg PO DAILY #90 caps 02/18/22 release mesalamine 400 mg capsule (with 2,400 mg PO BID #1,280 tab-caps 03/19/22 delayed release tablets inside) (Delzicol) atorvastatin 20 mg tablet 20 mg PO DAILY #90 tabs 04/14/22 Wellbutrin XL 150 mg 24 hr tablet, 150 mg PO QAM #90 tabs 09/29/22 extended release (bupropion HCl) pregabalin 100 mg capsule See Rx Instructions PO .COMPLEX 10/14/22 #84 caps mesalamine 1,000 mg rectal 1 g [place] QHS #90 ea 11/02/22 suppository (Canasa) duloxetine 30 mg capsule,delayed 30 mg PO DAILY #90 caps 11/11/22 release Current Visit Medications: Current Medications Generic Name Dose Route Start Last Admin Trade Name Freq PRN Reason Stop Dose Admin Ringer's Solution 1,000 mls @ 30 mls/hr 12/11/22 06:00 12/11/22 09:50 IV 12/11/22 16:00 30 mls/hr INFUSION MIREYA Administration Cefazolin Sodium/Dextrose 2 gm in 50 mls @ 100 mls/hr 12/11/22 06:00 Ancef Duplex IVPB 12/11/22 23:59 PREOP MIREYA IV Miscellaneous Supplies 1 each 12/11/22 06:00 Iv Access IV 12/11/22 23:59 DIRECTED MIRYEA Oxycodone HCl 0 mg 12/11/22 07:26 Oxycodone 5 Mg Tab PO Q3H PRN PRN Pain Sodium Chloride 0 ml 12/11/22 06:00 Normal Saline Flush 10 Ml Syr IV 12/11/22 23:59 PRN PRN Sodium Chloride 0 ml 12/11/22 06:00 Normal Saline 10 Ml Vial IJ 12/11/22 23:59 DIRECTED PRN Sterile Water 0 ml 12/11/22 06:00 Water,Injection,Sterile 10 Ml Vial IJ 12/11/22 23:59 DIRECTED PRN PFSH Active Problems Active Problems: Problem Status Onset Code Osteoporosis M81.0 Tear of right gluteus medius tendon S76.011A Vertigo R42 Long-term current use of proton pump inhibitor therapy Z79.899 Trochanteric bursitis, right hip M70.61 Chronic kidney disease (CKD) N18.9 Scoliosis of lumbar spine M41.9 Emphysema lung J43.9 Hyperlipidemia 04/10/16 E78.5 Nicotine dependence 02/16/12 F17.200 Osteopenia 04/20/13 M85.80 Primary fibromyalgia syndrome 02/16/12 M79.7 Chronic leg pain M79.606, G89.29 Microcalcification of right breast on mammogram 03/05/21 R92.0 Risk for falls Z91.81 Vitamin D deficiency E55.9 Memory loss R41.3 Depressive disorder 04/20/13 F32.9 Leg cramps, sleep related 09/11/16 G47.62 Hypomagnesemia 10/08/16 E83.42 Fibrocystic disease of breast 04/26/12 N60.19 Medical History Medical History Chest heaviness Non-cardiac chest pain. Negative CTA coronary arteries 2020. Gastric polyp GERD (gastroesophageal reflux disease) Hiatal hernia Iliotibial band syndrome of right side Skipped heart beats Ulcerative colitis (06/08/12) 05/22/22 [facility] - Colonoscopy/EGD Ordered 08/03/22- colonoscopy/egd done at [facility] w. biopsies. and gastric cardia,polyp- hyperplastic polyp. Surgical History Surgical History Cholecystectomy H/O esophagogastroduodenoscopy 08/03/22 [facility] with polypectomy Ligation of fallopian tube Tonsillectomy Tobacco Smoking/Tobacco Use Status: Current every day Tobacco Type: cigarettes Smoking cigarettes per day: 3 Years smoked: 40 Smoking pack-years: 6.00 Alcohol Alcohol Intake: never Substance Use Substance use: Never Substance use type: does not use Details: smoked 1 cigararette this am Vital Signs and Lab Results Vital Signs Most Recent Vital Signs in EMR: Most Recent Vital Signs Temp Pulse Resp BP Pulse Ox 36.5 C 70 16 145/70 H 98 12/11/22 09:06 12/11/22 09:06 12/11/22 09:06 12/11/22 09:06 12/11/22 09:06 Lab Results Blood Type / Crossmatch: No Data to Display Complete Blood Count: No Data to Display Complete Metabolic Panel: No Data to Display Liver Function Panel: No Data to Display Coagulation Panel: No Data to Display Cardiac Panel: No Data to Display Arterial Blood Gas: No Data to Display Venous Blood Gas: No Data to Display Pancreas Panel: No Data to Display Thyroid Panel: No Data to Display Infectious Disease: No Data to Display Blood Cultures: No Data to Display Toxicology Panel: No Data to Display Imaging and Studies Imaging and Studies Study information below may be from another EMR and interpreted by another provider. Please see original notes in EMR for more complete details. EKG Summary: Conclusion Sinus bradycardia...rate< 60 Atrial premature complexes...SV complexes w/ short R-R intvls 08/05/21 Stress Test Summary: Stress ECG Conclusion 1. Resting EKG was within normal limits 2. Patient exercised on the Rodo protocol and completed a workload of 7.57 METS. There were no symptoms to suggest angina 3. Normal heart rate and blood pressure response to exercise. Patient achieved greater than 100% of predicted heart rate for age 4. Electrocardiographically there was no evidence of myocardial ischemia 5. Atrial premature beats were noted 6. Simons treadmill score is 6 which is low risk 09/16/20 Anesthesia Assessment and Plan Anesthesia History Personal History: No History of Anesthesia Complications Family History: No Family History of Anesthesia Complications Exercise Tolerance Exercise Tolerance: Metabolic Equivalents>4 Pertinent Negatives Pertinent Negatives: No Symptoms of GERD (Well controlled with meds), No Major Cardiovascular Symptoms or Complaints, No Major Pulmonary Symptoms or Complaints and No History of CVA/TIA Cardiac & Pulmonary Exam Cardiac Exam: Normal S1/S2 Heart Sounds Pulmonary Exam: Clear Bilateral Breath Sounds Implantable Cardiac Device Does patient have a Pacemaker or an ICD?: No Airway Exam Known Difficult Airway: No Mallampati Class: 2 Mouth Opening: Narrow (< 3cm) Thyromental Distance: Greater than 3 cm Neck Range of Motion: Full ROM Neck Circumference: Normal Teeth Condition: Normal Dentition ASA Classification ASA Score: ASA 2 Emergency Case?: No NPO Status NPO Status: NPO Clears >2 hours, Solids >8 hours Anesthesia Plan Resuscitation Status: Full Code Anesthesia Technique: General Anesthesia Airway Planned: Endotracheal Tube Monitors Used: Standard Monitors
[2022-12-11] MEDS: ceFAZolin 2 GM/50 ML BAG IVPB (11:45)
[2022-12-11] MEDS: Bupivacaine 0.5% Pres-Free W/EPI 30 ML VIAL (12:12)
--- NOTE | 2022-12-11 13:21 | DI.RAD_ITS ---
Exam(s) XR HIP RT IN OR EXAM: XR HIP RT IN OR CLINICAL HISTORY: Iliotibial band syndrome of right side TECHNIQUE: 2D and realtime digital imaging was performed. CONTRAST MATERIAL: Refer to procedure report. COMPARISON: No exams were available for comparison FINDINGS: Fluoroscopy was provided for Dr. Anderson during hip surgery. Please refer to the procedure report f or complete details. Ka,r=1.6 mGy IMPRESSION: RADIATION DOSE DELIVERED:
[2022-12-11] MEDS: EPINEPHrine 30 MG/30 ML VIAL (13:24)
--- NOTE | 2022-12-11 14:14 | ROE_ITS ---
Date of service: 12/11/22 Time of Service: 13:00 Operative Note Operative Note DATE OF PROCEDURE: 12/11/22 PRE-OP DIAGNOSIS: Right hip 1. Iliotibial band syndrome 2. Trochanteric bursitis 3. Partial gluteal tendon tear POST-OP DIAGNOSIS: same PROCEDURE: Right hip endoscopic 1. Iiliotibial band release, CPT# 11035 2. Trochanteric bursectomy, CPT# 76559 3. Gluteal tendon repair, CPT# 81385 SURGEON: Masood Anderson [employer] MILL SUPERVISOR: Jennifer Vázquez ANESTHESIA TYPE: Local By Surgeon and General LMA/ETT Refer to Anesthesia Record ESTIMATED BLOOD LOSS: 10 COMPLICATIONS: None Patient was transported to: PACU Patient's condition: stable Indications: Please see complete medical record for details. Findings: Moderately thickened iliotibial band. Abundant, inflamed trochanteric bursitis. Hypermobile gluteus medius tendon over partial central deep tear. Procedure Description: In the operating room, general anesthesia was induced. The patient was positioned supine on the [facility] operating room table. All bony prominences were well-padded. Preoperative antibiotics were administered. The hip was prepped and draped in the usual sterile fashion. The correct patient, procedure, and side of the procedure were all verified prior to incision. 30 cc of 0.25% bupivacaine containing epinephrine was infiltrated about the subcutaneous tissues for the planned anterior lateral and distal anterolateral portals as well as deeply over the greater trochanter. A knife was used to incise the skin for the anterior lateral and distal anterolateral portals followed by blunt dissection subcutaneously. Under fluoroscopic guidance, a switching stick and arthroscope were inserted localizing the iliotibial band over the greater trochanter. Blunt dissection and the mechanical shaver were used to resect fat and overlying tissue about the center of the iliotibial band and carefully expose the anterior and posterior margins. Once there was adequate exposure of the IT band, the greater trochanter was again localized under fluoroscopic guidance with a spinal needle inserted through the skin down to bone. This central area was marked using the radiofrequency ablator. A [place] blade was brought in and used to create a 2 cm longitudinal incision in line with the IT band fibers as well as extending it in a cruciate fashion with 2 cm incisions anteriorly and posteriorly. The radiofrequency ablator was used to achieve hemostasis. The mechanical shaver was then used to debride the IT band released edges exposing the trochanteric bursa. The mechanical shaver was then used to excise the trochanteric bursa taking care to protect musculature about the margins of the greater trochanter as well as neurovascular structures especially posteriorly. There was excellent visualization of the vastus lateralis as well as gluteus medius confirming appropriate bursa excision. The hip was brought through range of motion including internal and external rotation and there was no impinging iliotibial band tissue or remaining pathologic bursa. The viewing and working portals were switched and appropriate IT band release, trochanteric bursa excision, and hemostasis confirmed. The known tear was localized arthroscopically using fluoroscopic assistance and correlating with the MRI. Centrally and proximally along the greater trochanter the cuff grasper confirmed myotendinous abnormality and hypermobile gluteus medius tendon. The intact fibers were left on the endoscopic side. The self retrieving suture passer was used to grab widely and incorporate the deep layers of the tendon about the tear passing a FiberTape in a horizontal mattress fashio n. The self retrieving suture passer was used to secure the gluteus minimus at the anterior junction of the medius tear. A third central portal was made for best trajectory for suture anchor repair. The undersized punch was used and location confirmed fluoroscopically. The sutures were loaded on a 5.5 mm SwiveLock anchor and deployed with appropriate tension with good fixation strength. Care was taken to avoid over tensioning this partial tear repair. The tendon was now stable through probing and range of motion. Suction was used to remove fluid from the endoscopic space. The portals were closed using 3-0 Monocryl in a buried fashion. Steri-Strips were applied over the incisions followed by Xeroform, 4 x 4 gauze, an ABD pad, and secured with tape. The patient awoke from anesthesia without complication and was transferred to the recovery room in a stable condition.
--- NOTE | 2022-12-11 14:15 | PDOC.DSDIS_ITS ---
Date of service: 12/11/22 Time of Service: 14:09 Discharge Plan Disposition Patient Disposition: Home Discharge Details Attending Provider: Masood Anderson Primary Care Provider: Emilia Mckenzie Home Meds and New Rx's Prescriptions: New naproxen 250 mg tablet 250 - 500 mg PO BID PRNQty: 20 0RF Rx Instructions: take with a meal aspirin 81 mg tablet,delayed release (DR/EC) 81 mg PO DAILY 14 Days Qty: 14 0RF oxycodone 5 mg tablet 5 - 10 mg PO Q4H MDD 30 mg PRN (Reason: moderate to severe pain) Qty: 12 0RF Continued atorvastatin 20 mg tablet 20 mg PO DAILY Qty: 90 3RF bupropion HCl [Wellbutrin XL] 150 mg tablet extended release 24 hr 150 mg PO QAM Qty: 90 1RF Rx Instructions: Re-start, with brand name needed mesalamine [Canasa] 1,000 mg suppository 1 g [place] QHS Qty: 90 3RF omeprazole 40 mg capsule,delayed release(DR/EC) 40 mg PO DAILY Qty: 90 3RF mesalamine [Delzicol] 400 mg capsule (with del rel tablets) 2,400 mg PO BID Qty: 1280 3RF pregabalin 100 mg capsule See Rx Instructions PO .COMPLEX Qty: 84 3RF Rx Instructions: 1 in AM, 2 in PM PO; duloxetine 30 mg capsule,delayed release(DR/EC) 30 mg PO DAILY Qty: 90 3RF Discharge Instructions Additional Instructions: Surgery: Right hip endoscopy with iliotibial band release, trochanteric bursectomy, and gluteal tendon repair Activity: Protected weightbearing with a walker for 6 weeks. Gentle hip range of motion. No strengthening for 10 weeks. A physical therapy prescription will be sent electronically to begin in about 3 weeks. Prescriptions: Aspirin 81 mg take 1 daily to prevent a blood clot for 2 weeks Naproxen 250 mg take 1-2 every 12 hours with a meal as needed for moderate pain Oxycodone 5 mg take 1-2 every 4-6 hours as needed for severe pain You may use xpug-wzy-zzzibva Tylenol (acetaminophen) as needed for mild pain. These pain medications may be taken all at once or in different combinations as needed. Also, recommend Colace (docusate) as a stool softener as surgery and pain medicine cause constipation. You may try kjiu-opl-kuxclqc diphenhydramine (Benadryl) 25-50 mg nightly as a sl eep aid Dressings: Leave dressing in place for 3 days. May then remove and leave open to air or cover incisions with Band-Aids. May shower after 5 days. Follow-up: 10-[address] Anderson You may take off the leg compression stockings this evening at home. You may also leave them on a few days longer if you have a history of leg swelling or edema. Let us know right away if you develop any redness, drainage, fevers, chest pain, or trouble breathing. Do not drink alcohol or drive for at least 24 hours after anesthesia. Please call the office during business hours with any questions or concerns. Discharge Orders Discharge Orders: Discharge Order (Routine); Ordered 12/11/22 Ordered By: Masood Anderson DS: Diagnosis Discharge Diagnosis (1) Tear of right gluteus medius tendon: Status: Acute (2) Trochanteric bursitis, right hip: Status: Acute
[2022-12-11] MEDS: oxyCODONE 5 MG TAB PO (14:38)
--- NOTE | 2022-12-11 14:39 | W.ANESPOSTOP ---
Postoperative Evaluation Date, Time and Location Date Performed: 12/11/22 Time Performed: 14:39 Patient Location: Day Surgery Unit Vital Signs Most Recent Imported Vital Signs: Most Recent Vital Signs Temp Pulse Resp BP Pulse Ox 36.4 C L 67 13 102/39 L 97 12/11/22 13:49 12/11/22 14:04 12/11/22 14:04 12/11/22 14:04 12/11/22 14:04 Pain Score Most Recent Pain Score: Most Recent Pain Score Pain Level 7 12/11/22 09:06 Assessment Mental Status: Awake (Alert & Oriented to Patient Baseline) Airway and Respiratory Function: Patent airway with normal (patient baseline) respiratory exam Cardiovascular Function: Hemodynamically Stable Hydration Status: Adequately Hydrated Nausea & Vomiting: No Nausea or Vomiting Pain: Pain is tolerable per patient Peripheral Nerve Block: Patient did not receive a nerve block
--- NOTE | 2022-12-11 15:30 | IN_ITS ---
Date of service: 12/11/22 Time of Service: 15:58 PT Notes Physical Therapy Day Surgery Initial Evaluation Date: 12/11/2022 Referring Doctor: Masood Anderson MD PT Orders: PT CONSULT: Protected weight bearing R LE with walker Precautions: Fall. Standard. WBAT on the R LE with AD Patient Profile/Admitting Diagnosis: Beryl is a 72-year-old female with diagnoses of tear of the right gluteal medius tendon, right hip trochanteric bursitis, and ITB on the right side and is status post right gluteal tendon repair, right hip trochanteric bursectomy, and right IT band release on postoperative day 0. PMHX: All Active Problems?(Updated 11/24/22 @ 14:15 by Masood Anderson MD) Iliotibial band syndrome of right side (Acute) Tear of right gluteus medius tendon (Acute) per MRI, per PT for Rt Hip Pain Vertigo (Acute) Long-term current use of proton pump inhibitor therapy (Acute) this osteoporosis risk Trochanteric bursitis, right hip (Acute) Chronic kidney disease (CKD) (Chronic) Scoliosis of lumbar spine (Chronic) Emphysema lung (Chronic) Hyperlipidemia (Acute 04/10/16) PCEq CV risk 9.3%? LDL [id number] Nicotine dependence (Acute 02/16/12) 2012--down to 2-4 cigs with electronic cig Osteopenia (Acute 04/20/13) DEXA 06/2015: FRAX score 12.1% osteop/3.3% hip aldendronate Rx Primary fibromyalgia syndrome (Acute 02/16/12) Chronic leg pain (Chronic) Microcalcification of right breast on mammogram (Acute 03/05/21) Risk for falls (Acute) Vitamin D deficiency (Acute) Memory loss (Acute) Depressive disorder (Chronic 04/20/13) Leg cramps, sleep related (Acute 09/11/16) Hypomagnesemia (Acute 10/08/16) Fibrocystic disease of breast (Acute 04/26/12) Medical History?(Updated 11/24/22 @ 14:15 by Masood Anderson MD) Chest heaviness Non-cardiac chest pain.? Negative CTA coronary arteries 2020.Gastric polyp GERD (gastroesophageal reflux disease) Hiatal hernia Skipped heart beats Ulcerative colitis (06/08/12) 05/22/22 [facility] - Colonoscopy/EGD Ordered 08/03/22- colonoscopy/egd done at [facility] w. biopsies. and gastric cardia,polyp- hyperplastic polyp. Surgical History? Cholecystectomy H/O esophagogastroduodenoscopy 08/03/22 [facility]? with polypectomyLigation of fallopian tube Tonsillectomy Social History/Home Situation: No steps to enter. Independent with all aspects of ADLs prior to admission. Equipment Owned/DME: None Subjective: Anxious about walking. Danies pain, headache, and lightheadedness throughout session. Objective: General Observation: Seated on bedside recliner. Sister present throughout session. Mental Status: Alert and oriented as to person, place, time, and purpose. Able to pay attention, focus, and respond appropriately. Pain: 1-2/10 in R hip and lateral thigh Vital Signs: WNL as closley monitored by nursing staff ROM: Right Lower Extremity: Hip flexion WFL. Hip abduction WFL. Knee flexion WFL. Ankle dorsiflexion WFL. Ankle plantarflexion WFL. Left Lower Extremity: Hip flexion WFL. Hip abduction WFL. Knee flexion WFL. Ankle dorsiflexion WFL. Ankle plantarflexion WFL. Strength: Right Lower Extremity: Hip flexors 4-/5. Hip abductors 4-/5. Knee flexors 4/5. Knee extensors 4-/5. Ankle dorsiflexors 4/5. Ankle plantarflexors 4/5. Left Lower Extremity: Hip flexors 4/5. Hip abductors 4/5. Knee flexors 4/5. Knee extensors 4/5. Ankle dorsiflexors 4/5. Ankle plantarflexors 4/5. Bed Mobility/Transfers: Sit to stand stand by assist Stand to sit stand by assist Gait: Instructed patient with level surface ambulation of 150 feet requiring stand by assist, step through gait pattern. Jennifer decreased. No loss of balance. No shortness of breath. THERA EX: Quads sets x 5 Seated heel slides x 5 Seated marches x 5 LAQ x 5 Balance: Static Sitting: Normal Dynamic Sitting: Normal Static Standing: Fair Dynamic Standing: Fair Special Tests: Mobility Limitations Standardized Measure [employer] AM-PAC 6 clicks Basic Mobility Inpatient Short Form: Raw Score: 24 CMS Score: 0% deficit Informed Consent/Education: Patient was instructed in purpose of PT consult and plan of care. Agreeable to proceed with established PT POC to achieve personal goals. Assessment: Patient requires the use of FWW for all mobility ADL performance to maximize independence and reduce fall risk. Patient is assessed as a 92649 moderate complexity based on the following: History: 72-year-old female with past medical history as indicated above Examination: Demonstrable impairment in strength, balance, and mobility level with underlying impairments and functional limitations Presentation: Evolving Decision Makin moderate complexity Goals: N/A. PT evalaution and one treatment session only for functional mobility training and HEp instrcution. Plan of Care/Treatment Plan: N/A. PT evalaution and one treatment session only for functional mobility training and HEp instrcution. DISCHARGE RECOMMENDATIONS: [] Home with no services [] [] Home with services [specify] [X] Home with outpatient PT. Home when medically cleared by orthopedic surgeon. Recommend outpatient PT services in order to optimize functional mobility outcomes and facilitate return to independent community ambulation without assistive device. [] SNF for continued rehabilitation [] [] [facility] [] [] SNF versus LTC based on ability to participate and progress [] TREATMENT CODE/TIME: 81339 x 28 minutes beginning at 15:30 PM. Thank you for the opportunity to participate in the care of this patient. Lyn Chandra PT, DPT, CLT [facility] [place], [place]
== END 2022-12-11 15:55 | disposition home or self-care (01) ==
PROVIDERS: PCP Student in an Organized Health Care Education/Training Program; Visit Provider Student in an Organized Health Care Education/Training Program
PROC: (CPT 29863; principal; 2022-12-11 11:15)
DX: M70.61 Trochanteric bursitis, right hip (principal); M76.31 Iliotibial band syndrome, right leg; M76.01 Gluteal tendinitis, right hip; N18.9 Chronic kidney disease, unspecified; K21.9 Gastro-esophageal reflux disease without esophagitis; J43.9 Emphysema, unspecified
CPT/HCPCS: 27062; 27305; 27006; 97162; 73501; J0690; J1100; J1885; J2250; J2405; J2704; J3010

== ENCOUNTER → 2022-12-23 14:02 | Outpatient (BNVA) | payer MEDICARE, SELFPAY | PROVIDERS: PCP Student in an Organized Health Care Education/Training Program; Referring Provider Student in an Organized Health Care Education/Training Program; Visit Provider Student in an Organized Health Care Education/Training Program | DX: M70.61 Trochanteric bursitis, right hip (principal); S76.011D Strain of muscle, fascia and tendon of right hip, subsequent encounter; X58.XXXD Exposure to other specified factors, subsequent encounter; R60.0 Localized edema ==

== ENCOUNTER → 2023-02-03 10:10 | Outpatient (BNVA) | payer MEDICARE, SELFPAY | PROVIDERS: PCP Student in an Organized Health Care Education/Training Program; Referring Provider Student in an Organized Health Care Education/Training Program; Visit Provider Student in an Organized Health Care Education/Training Program | DX: Z47.89 Encounter for other orthopedic aftercare (principal); M70.61 Trochanteric bursitis, right hip ==

== ENCOUNTER 2023-02-17 02:00 | Outpatient (CLI) | payer MEDICARE, SELFPAY ==
[2023-02-17 10:19] LABS: ALT 21 U/L (14-59); AST 19 U/L (15-37); Albumin 3.9 g/dL (3.4-5.0); Alkaline Phosphatase 110 U/L (46-116); Anion Gap 5.2 mmol/L (3-11); BUN 13 mg/dL (7-18); Bilirubin, Total 0.4 mg/dL (0.2-1.0); CO2 29.8 mmol/L (21.0-32.0); CREATININE 1.2 mg/dL (0.55-1.02); Calcium 9.4 mg/dL (8.5-10.1); Chloride 104 mmol/L (98-107); Glucose 91 mg/dL (74-106); Potassium 4.5 mmol/L (3.5-5.1); Sodium 139 mmol/L (136-145); Total Protein 7.6 g/dL (6.4-8.2)
[2023-02-17 10:41] LABS: Vitamin D 25 Total 36.5 ng/mL (30-100)
== END 2023-02-17 02:01 | disposition home or self-care (01) ==
LOC: LBO 02:00
PROVIDERS: PCP Student in an Organized Health Care Education/Training Program; Visit Provider Student in an Organized Health Care Education/Training Program
DX: E83.42 Hypomagnesemia (principal); K51.90 Ulcerative colitis, unspecified, without complications; K76.9 Liver disease, unspecified; M81.0 Age-related osteoporosis without current pathological fracture; N18.9 Chronic kidney disease, unspecified
CPT/HCPCS: 36415; 80053; 82306; 83735

== ENCOUNTER → 2023-04-07 10:26 | Outpatient (BNVA) | payer MEDICARE, SELFPAY | PROVIDERS: PCP Student in an Organized Health Care Education/Training Program; Referring Provider Student in an Organized Health Care Education/Training Program; Visit Provider Student in an Organized Health Care Education/Training Program | DX: Z47.89 Encounter for other orthopedic aftercare (principal); M70.61 Trochanteric bursitis, right hip | CPT/HCPCS: 99213 ==

== ENCOUNTER → 2023-05-13 14:57 | Outpatient (BNVA) | payer MEDICARE, SELFPAY | PROVIDERS: PCP Student in an Organized Health Care Education/Training Program; Referring Provider Student in an Organized Health Care Education/Training Program | DX: G56.02 Carpal tunnel syndrome, left upper limb (principal) | CPT/HCPCS: 99213 ==

== ENCOUNTER 2023-06-24 12:10 | Outpatient (CLI) | payer MEDICARE, SELFPAY ==
--- NOTE | 2023-06-24 12:00 | DI.RAD_ITS ---
Exam(s) XR WRIST LT COMPLETE EXAM: XR WRIST LT COMPLETE CLINICAL HISTORY: LEFT WRIST PAIN. TECHNIQUE: 2D digital imaging was performed. Three views. COMPARISON: CR XR WRIST RT COMPLETE from 06/24/2023 FINDINGS: BONES: No acute fracture is present. No bony destructive lesion is seen. Like at the bones appear nor meron mineralized. JOINTS: The carpal bones are normally aligned. There are severe degenerative changes at the 1st car pal metacarpal joint with prominent periarticular spurring. There is some lateral subluxation of the 1st metacarpal with respect to the trapezium. no significant degenerative changes elsewhere. Chuyita hly marginated bony densities seen near the ulnar styloid. SOFT TISSUE: Normal. IMPRESSION: Severe degenerative changes at the 1st carpal metacarpal joint. DATA REPOSITORY: RADIATION DOSE DELIVERED:
--- NOTE | 2023-06-24 12:00 | DI.RAD_ITS ---
Exam(s) XR WRIST RT COMPLETE EXAM: XR WRIST RT COMPLETE CLINICAL HISTORY: RIGHT WRIST PAIN. TECHNIQUE: 2D digital imaging was performed. Three views. COMPARISON: None FINDINGS: BONES: No acute fracture is present. No bony destructive lesion is seen. JOINTS: The carpal bones are normally aligned. There are severe degenerative changes at the 1st carp al metacarpal joint. There is prominent periarticular spurring. Mild radial subluxation. No signif icant degenerative changes elsewhere. Mild negative ulnar variance. SOFT TISSUE: Normal. IMPRESSION: Severe degenerative changes 1st carpal metacarpal joint. DATA REPOSITORY: RADIATION DOSE DELIVERED:
== END 2023-06-24 12:11 | disposition home or self-care (01) ==
LOC: DIORS 12:10
PROVIDERS: PCP Student in an Organized Health Care Education/Training Program; Referring Provider Student in an Organized Health Care Education/Training Program; Visit Provider Student in an Organized Health Care Education/Training Program
DX: M18.0 Bilateral primary osteoarthritis of first carpometacarpal joints; G56.02 Carpal tunnel syndrome, left upper limb
CPT/HCPCS: 99213; 73110

== ENCOUNTER 2023-06-30 11:02 | Outpatient (CLI) | payer MEDICARE, SELFPAY ==
--- NOTE | 2023-06-30 10:40 | DI.RAD_ITS ---
Exam(s) XR HIP RT AP LAT ONLY EXAM: XR HIP RT AP LAT ONLY CLINICAL HISTORY: RIGHT HIP F/U. TECHNIQUE: 2D digital imaging was performed. Two views COMPARISON: CR XR HIP RT COMPLETE AP PELVIS from 04/22/2022 CR XR DEXA BONE DENSITY W/WO ERIC from 11/27/2022 FINDINGS: BONES: No acute fracture is present. No bony destructive lesion is seen. JOINTS: No dislocation present. The right hip joint space is maintained. There is mild acetabular spurring. The right SI joint is unremarkable. SOFT TISSUE: Normal. IMPRESSION: Stable mild degenerative changes of the right hip. DATA REPOSITORY: RADIATION DOSE DELIVERED:
--- NOTE | 2023-06-30 10:45 | DI.RAD_ITS ---
Exam(s) XR KNEE RT 3V AP,LAT,KRISTIN EXAM: XR KNEE RT 3V AP,LAT,KRISTIN CLINICAL HISTORY: KNEE PAIN. TECHNIQUE: 2D digital imaging was performed. Three views. COMPARISON: CR LEFT KNEE 3 VIEW COMPLETE from 03/24/2010 FINDINGS: BONES: No acute fracture is present. No bony destructive lesion is seen. Enthesophyte at quadriceps insertion. JOINTS: The knee is normally aligned. No joint effusion is seen. Minimal periarticular spurring. SOFT TISSUE: Normal. IMPRESSION: Minimal degenerative changes. DATA REPOSITORY: RADIATION DOSE DELIVERED:
== END 2023-06-30 11:03 | disposition home or self-care (01) ==
LOC: DIORS 11:02
PROVIDERS: PCP Student in an Organized Health Care Education/Training Program; Referring Provider Student in an Organized Health Care Education/Training Program; Visit Provider Student in an Organized Health Care Education/Training Program
DX: M25.561 Pain in right knee (principal); M16.11 Unilateral primary osteoarthritis, right hip
CPT/HCPCS: 73562; 99213; 73502

== ENCOUNTER → 2023-08-06 11:01 | Outpatient (BNVA) | payer MEDICARE, SELFPAY | PROVIDERS: PCP Student in an Organized Health Care Education/Training Program; Referring Provider Student in an Organized Health Care Education/Training Program; Visit Provider Student in an Organized Health Care Education/Training Program | DX: M18.12 Unilateral primary osteoarthritis of first carpometacarpal joint, left hand (principal); M18.11 Unilateral primary osteoarthritis of first carpometacarpal joint, right hand | CPT/HCPCS: 20600; J1030 ==

== ENCOUNTER → 2023-11-23 00:30 | Outpatient (CLI) | payer MEDICARE, SELFPAY ==
--- NOTE | 2023-11-23 08:15 | DI.CTLCSR_ITS ---
Exam(s) CT CHEST LUNG CANCER SCREEN EXAM: CT CHEST LUNG CANCER SCREEN CLINICAL HISTORY: Screening for lung cancer,former smoker, z87.891 TECHNIQUE: Imaging Protocol: Axial computed tomography images with coronal and sagittal reformatted images were created and reviewed COMPARISON: CT CT CHEST LUNG CANCER SCREEN from 03/06/2022 FINDINGS: Tracheobronchial tree: Patent where visualized. Pulmonary parenchyma: Centrilobular emphysematous changes are present. No architectural distortion. Lung Nodules: The scattered tiny 2 mm and less diameter nodules are again seen. No new pulmonary nod ules are present. Mediastinum and Maria Antonia: No dominant adenopathy or fluid collection. There is a hiatal hernia present. Thyroid gland: Unremarkable. Lymph nodes: Unremarkable. Pleura: No effusion or pneumothorax. Heart: The heart is not dilated. Coronary artery calcification is present. No pericardial effusion. Aorta: Thoracic aorta non-dilated.Atherosclerosis is present. Upper abdomen: There is a stable left adrenal nodule. The patient is status post cholecystectomy. Soft Tissues: Unremarkable. Bones: Within normal limits for the patient's age. IMPRESSION: Stable pulmonary nodules. No new nodules are seen. Lung RADS Cat 2 - Benign Appearance / Behavior: Nodules with a very low likelihood of becoming a clin ically active cancer due to size or lack of growth Lung-RADS 1.0 CATEGORIES: Category 0 - Prior chest CT exam(s) being located for comparison. Category 1 - Annual screening in 12 months. No nodules or definitely benign nodules. Category 2 - Annual screening in 12 months. Benign appearance. Nodules with low likelihood of becomin g active cancer. Category 3 - 6-month follow-up. Probably benign. Short-term follow-up suggested. Nodules with low lik elihood of becoming active cancer. Category 4A - 3-month follow-up and CT/PET if >8 mm in size. Suspicious finding. Findings which requi re additional testing. Category 4B - Findings which require additional testing and tissue sampling. Suspicious finding. Category 4X - Category 3 or 4 nodules with additional features or imaging findings that increases the suspicion of malignancy. Modifier S- Potentially clinically significant finding. (Non lung cancer) RADIATION DOSE DELIVERED: Total DLP Total DLP DATA REPOSITORY: All CT scans at this facility are submitted to the National Radiology Data Registry (NRDR) Dose Index Registry (DIR) with the [employer] (ACR). RADIATION OPTIMIZATION: All CT scans at this facility use at least one of these dose optimization te chniques: automated exposure control; mA and/or kV adjustment per patient size (includes targeted exa ms where dose is matched to clinical indication); or iterative reconstruction.
--- NOTE | 2023-11-23 14:48 | DI.MAMMO_ITS ---
Exam(s) MAMMO SCREENING EXAM: MAMMO SCREENING CLINICAL HISTORY: screening,z12.39 TECHNIQUE: Bilateral full field digital CC and MLO mammographic images were obtained with 3D tomosyn thesis and utilizing computer aided detection (CAD). COMPARISON: Available for comparison. FINDINGS: Masses/Architectural Distortion: None seen. Microcalcifications: No suspicious pleomorphic-type are seen. Skin Thickening/Nipple Retraction: None. IMPRESSION: 1. No significant interval change with no specific features of malignancy noted. 2. Unless there is more urgent need, screening mammography is recommended, as per [employer] guidelines. BI-RADS Category 1 - Negative Breast Density - Category B - Scattered areas of fibroglandular density Breast density category C or D implies that the patient has dense breast tissue. Dense breast tissue is very common and is not abnormal but dense breast tissue can make it harder to find cancer on a ma mmogram. Also, dense breast tissue may increase their breast cancer risk. This information about the result of the mammogram report was provided to the patient to raise their awareness. Use this report when you speak with the patient about their risks for breast cancer, which includes their family hist ory. At that time, you may recommend for more screening tests (Ultrasound or MRI) as they might be us eful based on their risk. A negative radiographic report should not delay biopsy if a dominant or clinically suspicious mass is present. Up to ten percent of cancers are not identified on mammography. A negative report may reinforce clinical impression. Adenosis and dense breasts may obscure an underlying neoplasm. False positive reports average 6 to 10%. Patient will receive a letter notifying them of these results.
== END ==
PROVIDERS: PCP Student in an Organized Health Care Education/Training Program; Visit Provider Student in an Organized Health Care Education/Training Program
DX: Z87.891 Personal history of nicotine dependence (principal); Z12.31 Encounter for screening mammogram for malignant neoplasm of breast; Z12.2 Encounter for screening for malignant neoplasm of respiratory organs; R91.1 Solitary pulmonary nodule
CPT/HCPCS: 71271; 77063; 77067

== ENCOUNTER 2024-03-03 01:31 | Outpatient (CLI) | payer MEDICARE, SELFPAY ==
[2024-03-03 09:56] LABS: Hemoglobin A1C 5.9 % (<5.7)
[2024-03-03 10:45] LABS: ALT 22 U/L (14-59); AST 21 U/L (15-37); Albumin 3.6 g/dL (3.4-5.0); Alkaline Phosphatase 99 U/L (46-116); Anion Gap 8.1 mmol/L (3-11); BUN 16 mg/dL (7-18); Bilirubin, Total 0.7 mg/dL (0.2-1.0); CO2 28.9 mmol/L (21.0-32.0); CREATININE 1.3 mg/dL (0.55-1.02); Calcium 9.1 mg/dL (8.5-10.1); Calculated LDL 119 mg/dL (<100); Chloride 105 mmol/L (98-107); Cholesterol 201 mg/dL (<200); Estimated GFR 42.88 (mL/min/1.73m2); Glucose 86 mg/dL (74-106); HDL Cholesterol 69 mg/dL (40-60); Magnesium 1.7 mg/dL (1.8-2.4); Potassium 4.5 mmol/L (3.5-5.1); Sodium 142 mmol/L (136-145); Total Protein 7.1 g/dL (6.4-8.2); Triglyceride 68 mg/dL (<150)
[2024-03-03 10:59] LABS: Vitamin D 25 Total 25.5 ng/mL (30-100)
== END 2024-03-03 01:32 | disposition home or self-care (01) ==
LOC: LBO 01:31
PROVIDERS: PCP Student in an Organized Health Care Education/Training Program; Visit Provider Student in an Organized Health Care Education/Training Program
DX: N18.9 Chronic kidney disease, unspecified (principal); R73.09 Other abnormal glucose; Z13.220 Encounter for screening for lipoid disorders; Z91.89 Other specified personal risk factors, not elsewhere classified; M81.0 Age-related osteoporosis without current pathological fracture
CPT/HCPCS: 36415; 80053; 80061; 82306; 83036; 83735

== ENCOUNTER 2024-03-24 11:49 | Outpatient (REF) | payer MEDICARE, SELFPAY | END 2024-03-24 11:50 | disposition home or self-care (01) | LOC: LBN 11:49 | PROVIDERS: PCP Student in an Organized Health Care Education/Training Program; Visit Provider Student in an Organized Health Care Education/Training Program | DX: R30.0 Dysuria (principal) | CPT/HCPCS: 87077; 87086; 87186 ==

== ENCOUNTER 2024-04-21 17:05 | Outpatient (REF) | payer MEDICARE, SELFPAY | END 2024-04-21 17:06 | disposition home or self-care (01) | LOC: LBN 17:05 | PROVIDERS: PCP Student in an Organized Health Care Education/Training Program; Referring Provider Family Medicine; Visit Provider Family Medicine | DX: R30.0 Dysuria (principal) | CPT/HCPCS: 87086 ==

== ENCOUNTER 2024-07-06 02:32 | Outpatient (CLI) | payer MEDICARE, SELFPAY ==
--- NOTE | 2024-07-06 10:57 | DI.RAD_ITS ---
Exam(s) XR LUMBAR SPINE COMP W FLEX/EX EXAM: XR LUMBAR SPINE COMP W FLEX/EX CLINICAL HISTORY: evaluate for anterolisthesis; bony pathology,radiculopathy,degeneration. TECHNIQUE: 2D digital imaging was performed of the lumbar spine. Eight images were obtained. AP, l ateral, right oblique, left oblique, flexion, extension and L5-S1 spot views were obtained. COMPARISON: CR XR ABDOMEN FLAT UPRIGHT from 08/11/2019 CR XR DEXA BONE DENSITY W/WO ERIC from 11/27/2022 FINDINGS: BONES: No fracture or destructive lesion. Endplate osteophytes are seen at multiple levels of the lum bar spine. Multilevel degenerative changes of the facets are present. There is unchanged anterior w edging of L1. DISKS: There is disc space narrowing at T12-L1 through L2-L3 and L5-S1. ALIGNMENT: There is a left convex scoliosis of the lumbar spine. 2 mm retrolisthesis of L1 on L2 is noted. No subluxation is seen with flexion or extension. No spondylolysis or spondylolisthesis. SOFT TISSUE: There are surgical clips in the right upper quadrant of the abdomen. Vascular calcifica tions are present. IMPRESSION: Moderately severe degenerative changes in the lumbar spine. DATA REPOSITORY: RADIATION DOSE DELIVERED:
== END 2024-07-06 02:52 ==
LOC: DI 02:32
PROVIDERS: PCP Student in an Organized Health Care Education/Training Program; Visit Provider Student in an Organized Health Care Education/Training Program
DX: M54.16 Radiculopathy, lumbar region (principal); M51.36 Other intervertebral disc degeneration, lumbar region
CPT/HCPCS: 72114

== ENCOUNTER → 2024-08-09 09:37 | Outpatient (BNVA) | payer MEDICARE, SELFPAY | PROVIDERS: PCP Student in an Organized Health Care Education/Training Program; Referring Provider Student in an Organized Health Care Education/Training Program; Visit Provider Student in an Organized Health Care Education/Training Program | DX: M76.31 Iliotibial band syndrome, right leg (principal); M70.61 Trochanteric bursitis, right hip | CPT/HCPCS: 20610; J1010 ==

== ENCOUNTER 2024-09-13 12:22 | Outpatient (REF) | payer MEDICARE, SELFPAY | END 2024-09-13 12:23 | disposition home or self-care (01) | LOC: LBN 12:22 | PROVIDERS: PCP Student in an Organized Health Care Education/Training Program; Visit Provider Nurse Practitioner | DX: R30.0 Dysuria (principal) | CPT/HCPCS: 87086 ==

== ENCOUNTER 2024-09-20 08:15 | Outpatient (CLI) | payer MEDICARE, SELFPAY ==
[2024-09-20 09:01] VITALS: PULSE 79
[2024-09-20 09:03] VITALS: BP 172/88; PULSE 75; PULSE 78; RESP 21; O2SAT 100
[2024-09-20 09:10] VITALS: PULSE 82; RESP 22; O2SAT 99
[2024-09-20 09:15] VITALS: BP 145/88; PULSE 69; O2SAT 98
--- NOTE | 2024-09-20 09:15 | DI.RAD_ITS ---
Exam(s) XR PAIN CLINIC LUMBAR SP 2V EXAM: XR PAIN CLINIC LUMBAR SP 2V CLINICAL HISTORY: DX:Lumbar Spondylosis. TECHNIQUE: Fluoroscopy was provided for the referring physician for guidance with performing pain cl inic injection procedure. COMPARISON: No exams were available for comparison FINDINGS: Please see procedure note for details. Fluoro time: 41.2 seconds RADIATION DOSE DELIVERED: gilberto Nava=10.19 mGy
--- NOTE | 2024-09-20 09:16 | PDOC.PAIN ---
Date of service: 09/20/24 Time of Service: 09:16 Pain Managment Procedure Note Procedure Note Procedure Note: PROCEDURE NOTE Bilateral Lumbar Medial Branch Blocks Date of Service: September 20, 2024 Patient: Beryl Grimes Provider: Abraham Yusuf DO, MPH Beryl Grimes has been referred to the [facility] for lumbar medial branch blocks. Pre-operative diagnosis: Lumbar Spondylosis without Myelopathy ICD-10 M47.816 Post-operative diagnosis: Same Pre-procedure pain: VAS= 5/10 COMMENTS: I previously evaluated her in the office. Ismael was interviewed and the medical records were reviewed. There were no medical, pharmacologic, radiographic or other structural contraindications to attempting fluoroscopically guided local anesthetic lumbar medial branch blocks. Risks and potential side effects were discussed. I also discussed the potential benefit(s) of the procedure with Beryl, and voiced concerns were addressed. After Beryl was completely informed about the procedure, the printed consent form was signed. A standard time-out procedure was performed. Beryl was placed in the prone position on the fluoroscopy table. Automated blood pressure cuff and pulse oximeter were applied. The skin entry points for approaching the anatomic target points of the segmental medial branches of right L3,L4,L5 were identified with fluoroscopy and marked. The skin at the target site area was thoroughly prepared with Chlorhexadine. The skin was then draped. Next, a 25 gauge 3.5 spinal needle was placed under fluoroscopic guidance down on to the target point (the articular pillar) for each respective segmental medial branch. Position was confirmed in A/P and lateral views. Aspiration revealed no blood or clear fluid. Next, 0.25ml of omnipaque 240 was injected at each level. No contrast following a vascular or neural pattern was visualized under continuous fluoroscopy. Next, 0.25 ml of preservative-free 0.5% bupivicaine was injected at each level. There was no unusual discomfort expressed by Beryl. The needles were withdrawn without difficulty. (49 mls of Omnipaque was wasted) Beryl was observed and was without hemodynamic, neurologic, or allergic reactions.? Fluoroscopic images were digitally archived. Provacative testing using the Modified Stern's facet loading test- Right Side Directly before the block VAS (0-10) = 5/10 Five minutes after the block VAS (0-10) = 0/10 Percentage relief obtained with this diagnostic block 100% Any improved physical functioning directly after the blocks? Able to move her low back with ease. Follow up plans and appointments were discussed with Beryl. Beryl was instructed to keep careful note of how the usual pain was modified by these injections. Specifically, to keep a pain diary for the next 4 hours using a numeric pain scale of 0-10 and report these results. Post procedure instruction was given as documented in the nursing documentation and having met discharge criteria, the patient was [facility]. Based on the medial branches blocked today, if they patient has adequate relief and we are able to proceed to radiofrequency ablation, the treatment should result in the denervation of the right L4-L5 and L5-S1 facet joints. We would expect to denervate a total of 2 facets during the radiofrequency ablation. COMMENTS: No apparent complications. Post-procedure pain: VAS= 0/10 Beryl will call back with 0-4 hour post-procedure pain scores. I personally performed the entire procedure. ABRAHAM YUSUF DO, MPH ABPM&R-subspecialty board certification in Pain Medicine [facility] [facility]
[2024-09-20] MEDS: Nerve Block Tray 1 EACH MC (09:21)
[2024-09-20] MEDS: Omnipaque 240 MG/ML 50 ML BTL IJ (09:22)
[2024-09-20] MEDS: Bupivacaine 0.5% Pres-Free 10 ML VIAL IJ (09:22)
== END 2024-09-20 08:16 | disposition home or self-care (01) ==
LOC: PC 08:16
PROVIDERS: PCP Student in an Organized Health Care Education/Training Program; Visit Provider Preventive Medicine Occupational Medicine
DX: M54.50 Low back pain, unspecified (principal); M47.816 Spondylosis without myelopathy or radiculopathy, lumbar region
CPT/HCPCS: 64493; 64494; 72100; J0665; Q9967

== ENCOUNTER 2024-10-04 09:16 | Outpatient (CLI) | payer MEDICARE, SELFPAY ==
[2024-10-04 09:26] VITALS: BP 164/83; PULSE 66; RESP 20; TEMP 36.6; O2SAT 99
[2024-10-04 09:54] VITALS: PULSE 69; RESP 16; O2SAT 99
[2024-10-04 09:59] VITALS: BP 200/95; PULSE 70; PULSE 72; RESP 18; O2SAT 97
[2024-10-04 10:00] VITALS: PULSE 69; RESP 20; O2SAT 98
[2024-10-04 10:01] VITALS: BP 194/88; PULSE 69; PULSE 70; RESP 18; O2SAT 97
[2024-10-04 10:12] VITALS: BP 168/86; PULSE 64
[2024-10-04] MEDS: Bupivacaine 0.5% Pres-Free 10 ML VIAL IJ (10:15)
[2024-10-04] MEDS: Nerve Block Tray 1 EACH MC (10:15)
[2024-10-04] MEDS: Omnipaque 240 MG/ML 50 ML BTL IJ (10:16)
--- NOTE | 2024-10-04 12:30 | PDOC.PAIN ---
Date of service: 10/04/24 Time of Service: 12:30 Pain Managment Procedure Note Procedure Note Procedure Note: PROCEDURE NOTE Right Lumbar Medial Branch Blocks Date of Service: October 04, 2024 Patient: Beryl Grimes Provider: Brenda Yusuf DO, MPH Beryldalton Grimes has been referred to the [facility] for lumbar medial branch blocks. Pre-operative diagnosis: Lumbar Spondylosis without Myelopathy ICD-10 M47.816 Post-operative diagnosis: Same Pre-procedure pain: VAS= 4/10 COMMENTS: She did very well with the first set of LMBBs. Ismael was interviewed and the medical records were reviewed. There were no medical, pharmacologic, radiographic or other structural contraindications to attempting fluoroscopically guided local anesthetic lumbar medial branch blocks. Risks and potential side effects were discussed. I also discussed the potential benefit(s) of the procedure with Beryl, and voiced concerns were addressed. After Beryl was completely informed about the procedure, the printed consent form was signed. A standard time-out procedure was performed. Beryl was placed in the prone position on the fluoroscopy table. Automated blood pressure cuff and pulse oximeter were applied. The skin entry points for approaching the anatomic target points of the segmental medial branches of right L3,L4,L5 were identified with fluoroscopy and marked. The skin at the target site area was thoroughly prepared with Chlorhexadine. The skin was then draped. Next, a 25 gauge 3.5 spinal needle was placed under fluoroscopic guidance down on to the target point (the articular pillar) for each respective segmental medial branch. Position was confirmed in A/P and lateral views. Aspiration revealed no blood or clear fluid. Next, 0.25ml of omnipaque 240 was injected at each level. No contrast following a vascular or neural pattern was visualized under continuous fluoroscopy. Next, 0.25 ml of preservative-free 0.5% bupivicaine was injected at each level. There was no unusual discomfort expressed by Beryl. The needles were withdrawn without difficulty. (49 mls of Omnipaque was wasted) Beryl was observed and was without hemodynamic, neurologic, or allergic reactions.? Fluoroscopic images were digitally archived. Provacative testing using the Modified Stern's facet loading test- Right Side Directly before the block VAS (0-10) = 4/10 Five minutes after the block VAS (0-10) = 0/10 Percentage relief obtained with this diagnostic block 100% Any improved physical functioning directly after the blocks? Able to move her low back with no pain. Follow up plans and appointments were discussed with Beryl. Beryl was instructed to keep careful note of how the usual pain was modified by these injections. Specifically, to keep a pain diary for the next 4 hours using a numeric pain scale of 0-10 and report these results. Post procedure instruction was given as documented in the nursing documentation and having met discharge criteria, the patient was discharged from the [facility]. Based on the medial branches blocked today, if they patient has adequate relief and we are able to proceed to radiofrequency ablation, the treatment should result in the denervation of the right L4-L5 and L5-S1 facet joints. We would expect to denervate a total of 2 facets during the radiofrequency ablation. COMMENTS: No apparent complications. Post-procedure pain: VAS= 0/10 Beryl will call back with 0-4 hour post-procedure pain scores. I personally performed the entire procedure. BRENDA YUSUF DO, MPH ABPM&R-subspecialty board certification in Pain Medicine [facility] [facility]
--- NOTE | 2024-10-04 18:00 | DI.RAD_ITS ---
Exam(s) XR PAIN CLINIC LUMBAR SP 2V EXAM: XR PAIN CLINIC LUMBAR SP 2V CLINICAL HISTORY: DX: Lumbar Spondylosis. TECHNIQUE: Fluoroscopy was provided for the referring physician for guidance with performing pain cl inic injection procedure. COMPARISON: No exams were available for comparison FINDINGS: Please see procedure note for details. Fluoro time: 58.1 seconds RADIATION DOSE DELIVERED: Brandyr=13.6 mGy
== END 2024-10-04 09:17 | disposition home or self-care (01) ==
LOC: PC 09:16
PROVIDERS: PCP Student in an Organized Health Care Education/Training Program; Visit Provider Preventive Medicine Occupational Medicine
DX: M47.816 Spondylosis without myelopathy or radiculopathy, lumbar region (principal); M54.50 Low back pain, unspecified
CPT/HCPCS: 64493; 64494; 72100; J0665; Q9967

== ENCOUNTER 2024-10-13 15:50 | Outpatient (CLI) | payer MEDICARE, SELFPAY ==
--- NOTE | 2024-10-13 15:45 | RT.EKG_ITS ---
APPROVED REPORT Exam: Resting ECG Reason for Exam: Irregular heart beat Patient Location: O HR:67 bpm ECG Measurements Heart Rate 67 AXIS SC 157 P 35 QRSd 80 QRS 6 QT 384 T 35 QTc 406 Conclusion Sinus rhythm...normal P axis, V-rate 50- 99 Atrial premature complexes...SV complexes w/ short R-R intvls Abnormal R-wave progression, early transition...QRS area>0 in V2 I have reviewed and I agree with the emergency room physician's ECG interpretation.
== END 2024-10-13 15:51 | disposition home or self-care (01) ==
LOC: DI.KIM 15:51
PROVIDERS: PCP Student in an Organized Health Care Education/Training Program; Visit Provider Nurse Practitioner Family
DX: I49.9 Cardiac arrhythmia, unspecified (principal)
CPT/HCPCS: 93010

== ENCOUNTER 2024-12-11 01:27 | Outpatient (CLI) | payer MEDICARE, SELFPAY ==
--- NOTE | 2024-12-11 07:00 | DI.CTLCSR_ITS ---
Exam(s) CT CHEST LUNG CANCER SCREEN EXAM: CT CHEST LUNG CANCER SCREEN CLINICAL HISTORY: Screening for lung cancer,CURRENT SMOKER, F17.210. TECHNIQUE: Imaging Protocol: Low Dose Technique CONTRAST MATERIAL: None COMPARISON: CT CT CHEST LUNG CANCER SCREEN from 11/23/2023 FINDINGS: CHEST: LUNGS: There are no new ominous pulmonary nodules. There are no confluent infiltrates. Previously de scribed tiny less than 2 mm nodules are difficult to appreciate on the present study. MEDIASTINUM: There is no obvious hilar nor mediastinal adenopathy. Hiatal hernia again noted, unchan ged in size. CARDIAC: Heart size is normal. There is no pericardial effusion.Caliber of the thoracic aorta is wit hin normal limits. OTHER: Left adrenal nodule exhibits stable size. Right adrenal gland again unremarkable. Previous c holecystectomy again evident. Spleen size remains normal. OSSEOUS: No significant osseous lesions.No fractures.. IMPRESSION: 1. No new ominous pulmonary nodules. 2. No infiltrates nor pleural effusions nor significant intrathoracic adenopathy. 3. Lung RADS Cat 1 - Negative: No nodules and definitely benign nodules Lung-RADS 1.0 CATEGORIES: Category 0 - Prior chest CT exam(s) being located for comparison. Category 1 - Annual screening in 12 months. No nodules or definitely benign nodules. Category 2 - Annual screening in 12 months. Benign appearance. Nodules with low likelihood of becomin g active cancer. Category 3 - 6-month follow-up. Probably benign. Short-term follow-up suggested. Nodules with low lik elihood of becoming active cancer. Category 4A - 3-month follow-up and CT/PET if >8 mm in size. Suspicious finding. Findings which requi re additional testing. Category 4B - Findings which require additional testing and tissue sampling. Category 4X - Category 3 or 4 nodules with additional features or imaging findings that increases the suspicion of malignancy. Modifier S- Potentially clinically significant findings (non lung cancer) RADIATION DOSE DELIVERED: 25.38mGy.cm Total DLP DATA REPOSITORY: All CT scans at this facility are submitted to the National Radiology Data Registry (NRDR) Dose Index Registry (DIR) with the [employer] (ACR). RADIATION OPTIMIZATION: All CT scans at this facility use at least one of these dose optimization te chniques: automated exposure control; mA and/or kV adjustment per patient size (includes targeted exa ms where dose is matched to clinical indication); or iterative reconstruction.
--- NOTE | 2024-12-11 07:00 | DI.MAMMO_ITS ---
Exam(s) MAMMO SCREENING EXAM: MAMMO SCREENING CLINICAL HISTORY: screening,Z12.39. TECHNIQUE: Bilateral full field digital CC and MLO mammographic images were obtained with 3D tomosyn thesis and utilizing computer aided detection (CAD). COMPARISON: Prior mammograms were reviewed. FINDINGS: There has been no significant change in the appearance and distribution of the fibroglandular tissue. There are no new left breast findings. In the right breast there small calcification-group calcifications seen on the CC view located 6.5 cm in from the nipple. Mag view recommended. There is no significant architectural distortion nor skin thickening-retraction. IMPRESSION: 1. No radiographic evidence of malignancy in left breast. 2. New small microcalcification group in the right breast. Spot Mag CC view recommended BI-RADS Category 0 - Incomplete: Need additional imaging evaluation Breast Density - Category B - Scattered areas of fibroglandular density Breast density Category C or D implies that the patient has dense breast tissue. Dense breast tissue can make it harder to find cancer on a mammogram. Dense breast tissue is also associated with an incr eased risk of breast cancer. This information about the result of the mammogram report was provided to the patient to raise their awareness. Use this report when you speak with the patient about their risks for breast cancer, which includes their family history. At that time, you may recommend additional screening tests (Ultrasoun d or MRI) as these tests may add significant information. A negative radiographic report should not delay biopsy if a dominant or clinically suspicious mass is present. Up to ten percent of cancers are not identified on mammography. A negative report may reinforce clinical impression. Adenosis and dense breasts may obscure an underlying neoplasm. False positive reports average 6 to 10%. Patient will receive a letter notifying them of these results.
== END 2024-12-11 01:47 ==
LOC: DI 01:27
PROVIDERS: PCP Nurse Practitioner; Visit Provider Nurse Practitioner
DX: F17.210 Nicotine dependence, cigarettes, uncomplicated (principal); Z12.31 Encounter for screening mammogram for malignant neoplasm of breast; Z12.2 Encounter for screening for malignant neoplasm of respiratory organs
CPT/HCPCS: 71271; 77063; 77067

== ENCOUNTER 2024-12-14 02:48 | Outpatient (CLI) | payer MEDICARE, SELFPAY ==
--- NOTE | 2024-12-14 14:40 | DI.MAMMO_ITS ---
Exam(s) MG MAMMO SCREEN CALL BACK UNI EXAM: MAMMO SCREEN CALL BACK UNI-RIGHT CLINICAL HISTORY: F/U MAMMO, R92.8,NEW SMALL RT MICROCALCIFICATION GROUP. TECHNIQUE: Unilateral 2D spot mammographic images obtained BOTH CC AND MLOand utilizing computer aid ed detection (CAD). . COMPARISON: Prior mammograms were reviewed. This additional imaging was performed due to findings described on the recent screening mammogram of 12/11/2024. FINDINGS: DIAGNOSTIC MAMMOGRAM: Additional mammographic views performed todayreveal the small microcalcification group described.In r eviewing the prior mammograms this appears to have been present on the prior mammogram November 2023 b ut not on mammograms prior to that. Recommend six-month follow-up IMPRESSION: 1. Right breast microcalcification group as described above 2. Recommend six-month follow-up right breast diagnostic mammogram CC and MLO views plus 2D spot Mag CC and MLO views The patient was informed of these findings and recommendations by myself prior to leaving the depart ent today. BI-RADS Category 3 - 6 month - Probably Benign Finding: Recommend follow-up mammography in 6 months Breast Density - Category B - Scattered areas of fibroglandular density Breast density Category C or D implies that the patient has dense breast tissue. Dense breast tissue can make it harder to find cancer on a mammogram. Dense breast tissue is also associated with an incr eased risk of breast cancer. This information about the result of the mammogram report was provided to the patient to raise their awareness. Use this report when you speak with the patient about their risks for breast cancer, which includes their family history. At that time, you may recommend additional screening tests (Ultrasoun d or MRI) as these tests may add significant information. A negative radiographic report should not delay biopsy if a dominant or clinically suspicious mass is present. Up to ten percent of cancers are not identified on mammography. A negative report may reinforce clinical impression. Adenosis and dense breasts may obscure an underlying neoplasm. False positive reports average 6 to 10%. Patient will receive a letter notifying them of these results.
== END 2024-12-14 03:08 ==
LOC: DI 02:49
PROVIDERS: PCP Nurse Practitioner; Visit Provider Nurse Practitioner
DX: Z12.31 Encounter for screening mammogram for malignant neoplasm of breast (principal); R92.8 Other abnormal and inconclusive findings on diagnostic imaging of breast; R92.323 Mammographic fibroglandular density, bilateral breasts; D24.1 Benign neoplasm of right breast
CPT/HCPCS: 77063; 77067

== ENCOUNTER 2024-12-21 13:40 | Outpatient (CLI) | payer MEDICARE, SELFPAY ==
[2024-12-21 11:17] LABS: Hemoglobin A1C 5.6 % (<5.7)
[2024-12-21 12:18] LABS: ALT 17 U/L (14-59); AST 21 U/L (15-37); Albumin 3.8 g/dL (3.4-5.0); Alkaline Phosphatase 116 U/L (46-116); Anion Gap 8.1 mmol/L (3-11); BUN 17 mg/dL (7-18); Bilirubin, Total 0.48 mg/dL (0.2-1.0); CO2 27.9 mmol/L (21.0-32.0); CREATININE 1.3 mg/dL (0.55-1.02); Calcium 9.5 mg/dL (8.5-10.1); Calculated LDL 127 mg/dL (<100); Chloride 105 mmol/L (98-107); Cholesterol 212 mg/dL (<200); Estimated GFR 42.62 (mL/min/1.73m2); Glucose 90 mg/dL (74-106); HDL Cholesterol 67 mg/dL (40-60); Potassium 4.5 mmol/L (3.5-5.1); Sodium 141 mmol/L (136-145); TSH (W/Ref FT4) 1.98 uIU/mL (0.36-3.74); Total Protein 7.9 g/dL (6.4-8.2); Triglyceride 93 mg/dL (<150)
== END 2024-12-21 13:41 | disposition home or self-care (01) ==
LOC: LBO 13:43
PROVIDERS: PCP Nurse Practitioner; Visit Provider Nurse Practitioner
DX: E78.5 Hyperlipidemia, unspecified (principal); R73.03 Prediabetes
CPT/HCPCS: 36415; 80053; 80061; 83036; 84443

== ENCOUNTER 2025-05-30 02:53 | Outpatient (CLI) | payer MEDICARE, SELFPAY ==
--- NOTE | 2025-05-30 14:04 | DI.MAMMO_ITS ---
Exam(s) MG MAMMO DIAGNOSTIC UNI EXAM: MG MAMMO DIAGNOSTIC UNI CLINICAL HISTORY: 6 mos f/u, ABNL RT BREAST MAMMOGRAM TECHNIQUE: Right cc and MLO mammogram images were performed according to the usual protocol including computer analysis with CAD system, tomosynthesis and C- view imaging. COMPARISON: MG MG MAMMO SCREENING from 12/11/2024 MG MG MAMMO SCREEN CALL BACK UNI from 12/14/2024 mm back to 2016 FINDINGS: The right breast is composed of scattered fibroglandular densities, Breast Density category B. No suspicious masses or suspicious microcalcifications are seen. A previously noted cluster calcifications in the inferior right breast appears unchanged. No skin thickening or abnormal axillary lymph nodes are seen. IMPRESSION: BI-RADS Category 3 - Annual - Resume Annual Screening Breast Density - Category B - There are scattered areas of fibroglandular density. Breast density Category C or D implies that the patient has dense breast tissue. Dense breast tissue can make it harder to find cancer on a mammogram. Dense breast tissue is also associated with an increased risk of breast cancer. This information about the result of the mammogram report was provided to the patient to raise their awareness. Use this report when you speak with the patient about their risks for breast cancer, which includes their family history. At that time, you may recommend additional screening tests (Ultrasound or MRI) as these tests may add significant information. A negative radiographic report should not delay biopsy if a dominant or clinically suspicious mass is present. Up to ten percent of cancers are not identified on mammography. A negative report may reinforce clinical impression. Adenosis and dense breasts may obscure an underlying neoplasm. False positive reports average 6 to 10%. Patient will receive a letter notifying them of these results.
== END 2025-05-30 03:13 ==
LOC: DI 02:53
PROVIDERS: PCP Nurse Practitioner; Visit Provider Nurse Practitioner
DX: Z12.31 Encounter for screening mammogram for malignant neoplasm of breast (principal); R92.8 Other abnormal and inconclusive findings on diagnostic imaging of breast
CPT/HCPCS: 77061; 77065; G0279

== ENCOUNTER 2025-08-04 09:57 | Emergency (ER) | payer MEDICARE, SELFPAY ==
[2025-08-04 09:59] VITALS: BP 156/83; PULSE 65; RESP 16; TEMP 36.4; O2SAT 95
--- NOTE | 2025-08-04 10:00 | DI.RAD_ITS ---
Exam(s) XR KNEE LT 3V AP,LAT,KRISTIN EXAM: XR KNEE LT 3V AP,LAT,KRISTIN CLINICAL HISTORY: posterior knee pain, twisted. TECHNIQUE: 2D digital imaging was performed. COMPARISON: CR XR KNEE RT 3V AP,LAT,KRISTIN from 06/30/2023 FINDINGS: 3 views No evidence of fracture but there does appear to be a small joint effusion. Also mild prepatellar swelling. There is no joint space narrowing. No osteophytes. Bone density normal. No loose bodies. IMPRESSION: No significant osseous findings but there is a small joint effusion which may indicate internal derangement. DATA REPOSITORY: RADIATION DOSE DELIVERED:
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
[2025-08-04] MEDS: Acetaminophen 500 MG TAB 1000 MG PO (11:23)
--- NOTE | 2025-08-04 12:05 | DI.VRAD_ITS ---
PROCEDURE INFORMATION: Exam: XR Left Knee Exam date and time: 08/04/2025 10:41 AM Age: 74 years old Clinical indication: Pain; Knee; Left; Additional info: Posterior knee pain, twisted TECHNIQUE: Imaging protocol: Radiologic exam of the left knee. Views: 3 views. COMPARISON: CR XR LUMBAR SPINE COMP W FLEX/EX 07/06/2024 10:47 AM FINDINGS: Bones/joints: Mild Tricompartmental joint space narrowing and osteophyte formation consistent with degenerative changes. There is no evidence of acute fracture.There is no evidence of malalignment or dislocation. Soft tissues: Normal. IMPRESSION: 1. Mild Tricompartmental joint space narrowing and osteophyte formation consistent with degenerative changes. 2. There is no evidence of acute fracture.There is no evidence of malalignment or dislocation. Dictated and Authenticated by: Yaz Goyal MD. Orderin St. Natanael Cardenas MD
--- NOTE | 2025-08-20 09:37 | NUR.NOTE ---
Accessed Pt chart to print the Providers note for [facility]. I will fax the notes to themNursing Note:
== END 2025-08-04 12:48 | disposition home or self-care (01) ==
PROVIDERS: Emergency Provider Emergency Medicine; PCP Nurse Practitioner
DX: S89.82XA Other specified injuries of left lower leg, initial encounter (principal); M25.462 Effusion, left knee; N18.30 Chronic kidney disease, stage 3 unspecified; E78.5 Hyperlipidemia, unspecified; F17.210 Nicotine dependence, cigarettes, uncomplicated; V48.4XXA Person boarding or alighting a car injured in noncollision transport accident, initial encounter
CPT/HCPCS: 73562; 99283

== ENCOUNTER → 2025-08-17 09:56 | Outpatient (BNVA) | payer MEDICARE, SELFPAY | PROVIDERS: PCP Nurse Practitioner; Referring Provider Nurse Practitioner; Visit Provider Physician Assistant | DX: M23.92 Unspecified internal derangement of left knee (principal) | CPT/HCPCS: 99213 ==

== ENCOUNTER → 2025-09-13 08:24 | Outpatient (BNVA) | payer MEDICARE, SELFPAY | PROVIDERS: PCP Nurse Practitioner; Referring Provider Nurse Practitioner; Visit Provider Physician Assistant | DX: M23.92 Unspecified internal derangement of left knee (principal); M25.662 Stiffness of left knee, not elsewhere classified | CPT/HCPCS: 20610; J1010 ==

== ENCOUNTER → 2025-09-25 09:49 | Outpatient (BNVA) | payer MEDICARE, SELFPAY | PROVIDERS: PCP Nurse Practitioner; Referring Provider Nurse Practitioner; Visit Provider Student in an Organized Health Care Education/Training Program | DX: M70.61 Trochanteric bursitis, right hip (principal); S76.011A Strain of muscle, fascia and tendon of right hip, initial encounter; X58.XXXA Exposure to other specified factors, initial encounter | CPT/HCPCS: 99213 ==

== ENCOUNTER → 2025-10-15 02:17 | Outpatient (CLI) | payer MEDICARE, SELFPAY ==
--- NOTE | 2025-10-15 07:45 | DI.MRI_ITS ---
Exam(s) MR LOWER JOINT RT WO EXAM: MR LOWER JOINT RT WO CLINICAL HISTORY: LATERAL R HIP PAIN, S/P GLUTEAL REPAIR 2022,tear rt gluteus medius tendon TECHNIQUE: Multiplanar multisequence MRI of right hip was performed COMPARISON: MR MR LOWER JOINT RT WO from 10/19/2022 CR XR HIP RT AP LAT ONLY from 06/30/2023 FINDINGS: Bones: There is no evidence of a fracture or avascular necrosis. There are postsurgical changes of a prior right gluteal tendon repair in the proximal right femur. No bone marrow edema is seen. The SI joints and symphysis pubis are well maintained. Joint: The labrum is grossly unremarkable. There is no significant joint effusion. Musculotendinous structures: There is hyperintense signal seen in the gluteus minimus and medius tendon at its insertion site onto the greater trochanter. The findings are suspicious for partial tears. There is also mild hyperintense T2 signal seen in the right hamstrings suspicious for tendinosis. IMPRESSION: 1. Findings of a partial tear involving the right gluteus minimus and medius tendons at their insertion onto the greater trochanter. 2. Defect in the proximal femur consistent with prior tendon repair. 3. Right hamstring tendinosis. DATA REPOSITORY:
== END ==
PROVIDERS: Visit Provider Student in an Organized Health Care Education/Training Program
DX: S76.011A Strain of muscle, fascia and tendon of right hip, initial encounter (principal); M70.61 Trochanteric bursitis, right hip; M16.11 Unilateral primary osteoarthritis, right hip
CPT/HCPCS: 73721

== ENCOUNTER 2025-10-16 11:11 | Outpatient (CLI) | payer MEDICARE, SELFPAY ==
--- NOTE | 2025-10-16 10:48 | DI.RAD_ITS ---
Exam(s) XR HIP RT AP LAT ONLY EXAM: XR HIP RT AP LAT ONLY CLINICAL HISTORY: RIGHT HIP PAIN. TECHNIQUE: 2D digital imaging was performed of the right hip. Two images were obtained. AP and lateral the right hip views were obtained. COMPARISON: CR XR HIP RT AP LAT ONLY from 06/30/2023 FINDINGS: BONES: No acute fracture is present. No bony destructive lesion is seen. JOINTS: No dislocation present. The right hip joint space shows mild asymmetric narrowing medially. SOFT TISSUE: Atherosclerotic calcification is present. IMPRESSION: Mild asymmetric joint space narrowing which can be seen with osteoarthritis. DATA REPOSITORY: RADIATION DOSE DELIVERED:
== END 2025-10-16 11:12 | disposition home or self-care (01) ==
LOC: DIORS 11:11
PROVIDERS: Visit Provider Student in an Organized Health Care Education/Training Program
DX: M70.61 Trochanteric bursitis, right hip (principal)
CPT/HCPCS: J1010; 73502